=== PATIENT | female | born 1975 | race Caucasian/White ===

== ENCOUNTER 2019-09-03 14:39 | Emergency (ER) | payer MEDICARE, OTHER ==
[~2019-09-03] VITALS: Ht 160 cm; Wt 86.2 kg
[~2019-09-03 14:39] MED LIST: CARAFATE1 G1 PO; ELAVIL25 MG PO; GEODON; TRILIPTAL PO; Z ACIDOPHILUS PO; Z GEODON PO; Z.0.BENTYL10 MG PO; Z.0.LEVOTHYROXINE75 PO; Z.0.NEXIUM40 MG PO; Z.0.PAXIL40 MG PO; Z.0.TRILEPTAL300 MG PO; ZANTAC150 MG PO; [UNRECOGNIZED DRUG - OTHER] PO
[2019-09-03] MEDS ORDERED: DONNATAL/LIDOCAINE/MAALOX 30 ML SUSP PO ONE (15:15)
[2019-09-03] MEDS ORDERED: LIDOCAINE VISC 2% SOLN 15 ML UDC ONE (15:41)
[2019-09-03] MEDS ORDERED: MAGNESIUM/ALUMINUM/SIMETHICONE 30 ML UDC ONE (15:41)
[2019-09-03] MEDS ORDERED: BELLADONNA ALK/PHENOBARBITAL 5 ML UDC ONE (15:41)
[2019-09-03] MEDS ORDERED: PANTOPRAZOLE 40 MG 10ML VIAL IV ONE (16:24)
[2019-09-03] MEDS ORDERED: ONDANSETRON HCL INJ 2MG/ML 2ML 2 MG/ML VIAL IV ONE (16:24)
[2019-09-03] MEDS ORDERED: SODIUM CHLORIDE 0.9% 1000ML 1,000 ML IV SCH (16:30)
[2019-09-03 16:41] LABS: AMPHETAMINES SCREEN,URINE NEGATIVE (NEGATIVE); BENZODIAZEPINES SCREEN,URINE NEGATIVE (NEGATIVE); PHENCYCLIDINE SCREEN,URINE NEGATIVE (NEGATIVE)
[2019-09-03 17:19] LABS: BASOPHILS # (AUTO) 0.1 (0.0-0.1); BASOPHILS % 0.8 % (0.0-1.0); EOSINOPHILS # (AUTO) 0.1 (0.0-0.4); HEMATOCRIT 44.4 % (34.2-44.1); LYMPHOCYTES # (AUTO) 1.9 (1.0-3.2); LYMPHOCYTES % 17.9 % (18.0-39.1); MEAN CORPUSCULAR HEMOGLOBIN 32.4 pg (28-32); MEAN CORPUSCULAR HGB CONC 33.8 g/dL (31-35); MEAN CORPUSCULAR VOLUME 95.9 fL (81-99); MONOCYTES # (AUTO) 0.7 (0.2-0.8); MONOCYTES % 6.6 % (4.4-11.3); NEUTROPHILS # (AUTO) 7.8 (2.1-6.9); NEUTROPHILS % 73.4 % (38.7-80.0); PLATELET COUNT 395 x10e3/uL (140-360); RED BLOOD COUNT 4.63 x10e6/uL (3.6-5.1); RED CELL DISTRIBUTION WIDTH 13.3 % (11.7-14.4)
--- NOTE | 2019-09-03 17:32 | Diagnostic Imaging Report ---
Exam: KUB - 2 views Indication: Abdominal Pain Comparison: None Findings: Distended stomach with ingested material. No free air. No abnormal calcifications. The osseous structures appear unremarkable. The partially visualized lung bases appear clear. Impression: Distended stomach filled with ingested material. No free air. Signed by: Lashonda Barrow MD on 09/03/2019 5:29 PM
[2019-09-03 17:38] LABS: ALANINE AMINOTRANSFERASE 11 IU/L (0-55); ALBUMIN/GLOBULIN RATIO 1.1 (0.8-2.0); ALKALINE PHOSPHATASE 79 IU/L (40-150); AMYLASE 41 U/L (25-125); ANION GAP 16.2 mmol/L (8-16); BLOOD UREA NITROGEN 11 mg/dL (7-26); BUN/CREATININE RATIO 14 (6-25); CALCIUM 9.7 mg/dL (8.4-10.2); CARBON DIOXIDE 25 mmol/L (22-29); CHLORIDE 99 mmol/L (98-107); CREATININE, SERUM 0.76 mg/dL (0.57-1.11); EST GLOMERULAR FILTRATION RATE > 60 ML/MIN (60-); GLUCOSE 86 mg/dL (74-118); LIPASE 38 U/L (8-78); MAGNESIUM 1.7 MG/DL (1.3-2.1); POTASSIUM 4.2 mmol/L (3.5-5.1); SODIUM 136 mmol/L (136-145)
[2019-09-03] MEDS ORDERED: ONDANSETRON HCL INJ 2MG/ML 2ML 2 MG/ML VIAL IV STA (18:14)
--- NOTE | 2019-09-03 18:14 | NUR ---
Pt vomited 1000ml of emesis of food particles and is still in pain. Pt is now getting a CT scan and medications. Pt refused to leave after getting discharge papers. Dr. Lee at bedside.
[2019-09-03] MEDS ORDERED: MORPHINE SULFATE INJ 4 MG/ML INJ 1ML IV PRN (18:15)
--- NOTE | 2019-09-03 19:05 | NUR ---
Report to PETEY Kelly
[2019-09-03] MEDS ORDERED: IOPAMIDOL 370 MG/ML 200 ML INFUS..BTL INJ ONE (19:08)
[2019-09-03] MEDS ORDERED: SODIUM CHLORIDE 0.9% 50ML 50 ML ONE (19:08)
[2019-09-03 20:12] VITALS: BP 98/78
--- NOTE | 2019-09-03 20:16 | Diagnostic Imaging Report ---
EXAM: CT Abdomen and Pelvis WITH contrast INDICATION: Abdominal pain. History of gastric ulcer disease. COMPARISON: None. TECHNIQUE: Abdomen and pelvis were scanned utilizing a multidetector helical scanner from the lung base to the pubic symphysis after administration of IV contrast. Coronal and sagittal reformations were obtained. Routine protocol was performed. Scan was performed when during portal venous phase. IV CONTRAST: 100 cc Isovue 370. ORAL CONTRAST: Water RADIATION DOSE: Total DLP: 349.64 mGy*cm Estimated effective dose: (DLP x 0.015 x size factor) mSv COMPLICATIONS: None FINDINGS: LINES and TUBES: None. LOWER THORAX: Unremarkable HEPATOBILIARY: No focal hepatic lesions. No biliary ductal dilation. GALLBLADDER: No radio-opaque stones or sludge. No wall thickening. SPLEEN: No splenomegaly. PANCREAS: No focal masses or ductal dilatation. ADRENALS: No adrenal nodules KIDNEYS/URETERS: Kidneys enhance symmetrically. No hydronephrosis. Small extrarenal right renal pelvis. Small low-attenuation lesions scattered throughout the kidneys bilaterally the largest in the lateral lower interpolar region of the right kidney measuring 1.1 cm, all demonstrating above than water attenuation, possibly due to technique No stones. GI TRACT: The gastric body and fundus is filled with fluid residue. There is mild thickening of the gastric wall which is nonspecific, however, may represent gastritis in the proper clinical setting. The gastric antrum is now distended which precludes adequate evaluation. There is no bowel dilatation to suggest obstruction. Appendix is unremarkable. Surgical clips are present along the esophagogastric junction and lesser curvature of the stomach, suggesting prior surgical procedure. The colon is somewhat normal in position, with the cecum located in the anterior mid abdomen. The appendix is unremarkable. PELVIC ORGANS/BLADDER: Unremarkable. LYMPH NODES: No lymphadenopathy. VESSELS: Unremarkable. PERITONEUM / RETROPERITONEUM: No free air or fluid. BONES: Multilevel Schmorl nodes. SOFT TISSUES: Unremarkable. IMPRESSION: 1. Findings may reflect gastritis. Possible narrowing of the gastric antrum not completely evaluated with this examination without contrast may reflect peptic ulcer disease. Recommend further evaluation with upper GI series or upper GI endoscopy. 2. Evidence of prior surgical history involving the esophagogastric junction and possibly proximal stomach; correlate clinically with past surgical history. 3. Small low-attenuation renal lesions bilaterally may represent cysts. Suggest further evaluation with nonemergent ultrasound of kidneys. Signed by: Dr. Julia Celaya M.D. on 09/03/2019 8:13 PM
== END 2019-09-03 20:20 | disposition home or self-care (01) ==
LOC: ER 14:39
DX: R10.13 Epigastric pain (principal); M79.7 Fibromyalgia; K31.84 Gastroparesis; E03.9 Hypothyroidism, unspecified; F31.9 Bipolar disorder, unspecified; Z88.5 Allergy status to narcotic agent; K21.9 Gastro-esophageal reflux disease without esophagitis
CPT/HCPCS: 36415; 74018; 74177; 80053; 80307; 81025; 82150; 83690; 83735; 85025; 99284; C9113; J2270; J2405; J7030; Q9967

== ENCOUNTER 2020-03-31 20:36 | Observation (INO) | payer MEDICARE ==
[~2020-03-31] VITALS: Ht 160 cm; Wt 86.2 kg
--- OUTSIDE RECORDS SUMMARY | 2020-03-31 20:41 | XMS REPORT ---
Author Author [facility] t Organization [facility] Address [address] [place] [id number] Phone Unavailable Care Team Providers Care Resolution Rep Name Role Phone ROYAL DALEY MD PCP PATY SINGER Unavailable Payers Payer Name Policy Type Policy Number Effective Date Expiration Date S mikel Medicare A & B [id number] 2007 00:00:00 [facility] Miscellaneous Indemnity [id number] 2009 00:00:00 [facility] Problems Condition Name Condition Details Condition Category Status Onset Date Resolution Date Last Treatment Date Treating Clinician Comments Source Peptic ulcer Peptic ulcer disease Problem Active [facility] Allergies, Adverse Reactions, Alerts Allergy Name Allergy Type Status Severity Reaction(s) Onset Date Inacti ve Date Treating Clinician Comments Source meperidine HCl Allergy to Substance Active Mild Itching 2019-09-03 0 0:00:00 [facility] Medications Ordered Medication Name Filled Medication Name Start Date Stop Da te Current Medication? Ordering Clinician Indication Dosage Frequency Signature (SIG) Comments Components Source Amitriptyline Hcl (Elavil) 25 Mg Tab Amitriptyline Hcl (Elavil) 25 Mg Tab Yes 300 Qhs [facility] Esomeprazole Mag Trihydrate (Nexium) 40 Mg Capsule. Esomeprazole Mag Trihydrate (Nexium) 40 Mg Capsule.dr Fuentes 40 T wice A Day [facility] Levothyroxine Sodium 75 Mcg Tablet Levothyroxine Sodium 75 Mcg Tablet Yes 75 Daily [facility] Oxcarbazepine (Trileptal) 300 Mg Tablet Oxcarbazepine (Trile ptal) 300 Mg Tablet Yes 300 Daily [facility] Paroxetine Hcl (Paxil) 40 Mg Tablet Paroxetine Hcl (Paxil) 40 Mg Tabl et Yes 40 Qhs [facility] Ranitidine Hcl (Zantac) 150 Mg Tablet Ranitidine Hcl (Zantac) 150 M g Tablet Yes 150 As Needed as needed for Indigestion [facility] Ziprasidone Hcl (Geodon) 80 Mg Capsule Ziprasidone Hcl (Geodon) 80 Mg Capsule Yes 100 Qhs [facility] Zolmitriptan (Zomig) 5 Mg Tablet Zolmitriptan (Zomig) 5 Mg Tablet Yes 5 Every 2-3 Hours [facility] Lactobacillus Acidophilus (Acidophilus) 1 Each Tablet, Tab Oral Lactobacillus Acidophilus (Acidophilus) 1 Each Tablet, Tab Oral 2017-03-11 00:00:0 0 No Twice A Day [facility] Dicyclomine Hcl (Bentyl) 10 Mg Capsule, 10 Mg Oral Dic yclomine Hcl (Bentyl) 10 Mg Capsule, 10 Mg Oral 2015-07-28 00:00:00 No 10 T hree Times A Day [facility] Geodon , Geodon , 2015-05-21 00:00:00 No [facility] Sucralfate (Carafate) 1 Gm Tablet, 1 Gm Oral Sucralfat e (Carafate) 1 Gm Tablet, 1 Gm Oral 2015-05-21 00:00:00 No 1 Four Times Yari ly [facility] Triliptal , 600 Mg Oral Triliptal , 600 Mg Oral 2015-05-21 00:00 :00 No 600 Bedtime [facility] Procedures Procedure Date / Time Performed Performing Clinician Sourc e Computed tomography of abdomen and pelvis with contrast 2018 00:00:00 PATY SINGER [facility] Encounters Start Date/Time End Date/Time Encounter Type Admission Type Attendi [facility] Facility Care Department Encounter ID Source 2019-11-13 20:01:00 2019-11-13 20:12:00 Departed Emergency Room [facility] [id number] [facility] 2019-09-03 14:39:00 2019-09-03 20:20:00 Departed Emergency Room 1 SINGERPATY [facility] [id number] [facility] 2018-07-07 23:15:00 2018-07-08 00:25:00 Departed Emergency Room [facility] [id number] [facility] Results Test Description Test Time Test Comments Results Result Comments Source CT ABDOMEN/PELVIS W 2019-09-03 19:55:00 [facility] [address] [address] Patient Name: JESUS SPENCE MR #: [id number] : 1975 Age/Sex: 44/F Req #: [id number] Adm Physician: Ordered by: PATY SINGER DO Report #: [id number] Location: ER Room/Bed: Procedure: [id number] CT/CT ABDOMEN/PELVIS W Exam Date: 09/03/19 Exam Time: 1851 REPORT STATUS: Signed EXAM: CT Abdomen and Pelvis WITH contrast INDICATION: Abdominal pain. History of gastric ulcer disease. COMPARISON: None. TECHNIQUE: Abdomen and pelvis were scanned utilizing a multidetector helical scanner from the lung base to the pubic symphysis after administration of IV contrast. Coronal and sagittal reformations were obtained. Routine protocol was performed. Scan was performed when during portal venous phase. IV CONTRAST: 100 cc Isovue 370. ORAL CONTRAST: Water RADIATION DOSE: Total DLP: 349.64 mGy*cm Estimated effective dose: (DLP x 0.015 x size factor) mSv COMPLICATIONS: None FINDINGS: LINES and TUBES: None. LOWER THORAX: Unremarkable HEPATOBILIARY: No focal hepatic lesions. No biliary ductal dilation. GALLBLADDER: No radio-opaque stones or sludge. No wall thickening. SPLEEN: No splenomegaly. PANCREAS: No focal masses or ductal dilatation. ADRENALS: No adrenal nodules KIDNEYS/URETERS: Kidneys enhance symmetrically. No hydronephrosis. Small extrarenal right renal pelvis. Small low-attenuation lesions scattered throughout the kidneys bilaterally the largest in the lateral lower interpolar region of the right kidney measuring 1.1 cm, all demonstrating above than water attenuation, possibly due to technique No stones. GI TRACT: The gastric body and fundus is filled with fluid residue. There is mild thickening of the gastric wall which is nonspecific, however, may represent gastritis in the proper clinical setting. The gastric antrum is now distended which precludes adequate evaluation. There is no bowel dilatation to suggest obstruction. Appendix is unremarkable. Surgical clips are present along the esophagogastric junction and lesser curvature of the stomach, suggesting prior surgical procedure. The colon is somewhat normal in position, with the cecum located in the anterior mid abdomen. The appendix is unremarkable. PELVIC ORGANS/BLADDER: Unremarkable. LYMPH NODES: No lymphadenopathy. VESSELS: Unremarkable. PERITONEUM / RETROPERITONEUM: No free air or fluid. BONES: Multilevel Schmorl nodes. SOFT TISSUES: Unremarkable. IMPRESSION: 1. Findings may reflect gastritis. Possible narrowing of the gastric antrum not completely evaluated with this examination without contrast may reflect peptic ulcer disease. Recommend further evaluation with upper GI series or upper GI endoscopy. 2. Evidence of prior surgical history involving the esophagogastric junction and possibly proximal stomach; correlate clinically with past surgical history. 3. Small low-attenuation renal lesions bilaterally may represent cysts. Suggest further evaluation with nonemergent ultrasound of kidneys. Signed by: Dr. Julia Velazquez M.D. on 09/03/2019 8:13 PM Dictated By: ELIZABETH VELAZQUEZ MD, MD 12 Transcribed By: TAMARA on 09/03/192012 COPY TO: PATY SINGER DO Sodium Level 2019-09-03 17:38:00 Test Item Sodium Level (test code = 2951-2) 136 136-145 [facility] Opwws7771-23-91 17:38:00* Test Item Value Reference Range Interpretation Comments Potassium Level (test code = 2823-3) 4.2 3.5-5.1 [facility] HospitalChloride Wfgzh1244-82-88 17:38:00* Test Item Value Reference Range Interpretation Comments Chloride Level (test code = 2075-0) 99 98-107 [facility] HospitalCarbon Dioxide Bljbn8079-01-58 17:38:00* Test Item Value Reference Range Interpretation Comments Carbon Dioxide Level (test code = 2028-9) 25 22-29 [facility] HospitalAnion Ztm6503-98-10 17:38:00* Test Item Value Reference Range Interpretation Comments Anion Gap (test code = 53863-1) 16.2 8-16 H [facility] HospitalBlood Urea Ywlqfeiq5839-13-08 17:38:00* Test Item Value Reference Range Interpretation Comments Blood Urea Nitrogen (test code = 3094-0) 11 7-26 [facility] HospitalCreatinine2019-11-01 17:38:00* Test Item Value Reference Range Interpretation Comments Creatinine (test code = 2160-0) 0.76 0.57-1.11 [facility] HospitalBUN/Creatinine Tswcm9705-14-96 17:38:00* Test Item Value Reference Range Interpretation Comments BUN/Creatinine Ratio (test code = 3097-3) 14 6- [facility] HospitalEstimat Glomerular Filtration Rate 2019-09-03 17:38:00* Test Item Value Reference Range Interpretation Comments Estimat Glomerular Filtration Rate (test code = 190976493) > 60 >60 Ranges were taken from the National Kidney Disease Education Program and the [facility] [employer] literature.Reference ranges:60 or greater: Xsftmu55-06 ( for 3 consecutive months): Chronic kidney disease 15 or less: Kidney failureHouston Methodist HospitalGlucose Ggsik8846-94-68 17:38:00* Test Item Value Reference Range Interpretation Comments Glucose Level (test code = GNW8500) 86 74-118 [facility] HospitalCalcium Dwwjc5719-37-68 17:38:00* Test Item Value Reference Range Interpretation Comments Calcium Level (test code = 29785-8) 9.7 8.4-10.2 [facility] HospitalMagnesium Figej7865-37-84 17:38:00* Test Item Value Reference Range Interpretation Comments Magnesium Level (test code = 16278-1) 1.7 1.3-2.1 [facility] HospitalTotal Buzcpxfvm7419-60-66 17:38:00* Test Item Value Reference Range Interpretation Comments Total Bilirubin (test code = 1975-2) 0.2 0.2-1.2 [facility] HospitalAspartate Amino Transf (AST/SGOT) 2019-09-03 17:38:00* Test Item Value Reference Range Interpretation Comments Aspartate Amino Transf (AST/SGOT) (test code = Aspartate Amino Transf (AST/SGOT)) 16 5-34 [facility] HospitalAlanine Aminotransferase (ALT/SGPT) 2019-09-03 17:38:00* Test Item Value Reference Range Interpretation Comments Alanine Aminotransferase (ALT/SGPT) (test code = 1742-6) 11 0-55 [facility] HospitalTotal Wieyofg6503-83-79 17:38:00* Test Item Value Reference Range Interpretation Comments Total Protein (test code = 2885-2) 7.5 6.5-8.1 [facility] HospitalAlbumin2019-11-01 17:38:00* Test Item Value Reference Range Interpretation Comments Albumin (test code = 1751-7) 4.0 3.5-5.0 [facility] HospitalGlobulin2019-11-01 17:38:00* Test Item Value Reference Range Interpretation Comments Globulin (test code = 74300-0) 3.5 2.3-3.5 [facility] HospitalAlbumin/Globulin Ipjdi9542-02-65 17:38:00 * Test Item Value Reference Range Interpretation Comments Albumin/Globulin Ratio (test code = 1759-0) 1.1 0.8-2.0 [facility] HospitalAlkaline Wydjgupnenm8196-65-37 17:38:00* Test Item Value Reference Range Interpretation Comments Alkaline Phosphatase (test code = 6768-6) 79 40-150 [facility] HospitalAmylase Ikjzi2008-76-01 17:38:00* Test Item Value Reference Range Interpretation Comments Amylase Level (test code = 1798-8) 41 25-125 [facility] HospitalLipase2019-11-01 17:38:00* Test Item Value Reference Range Interpretation Comments Lipase (test code = 3040-3) 38 8-78 [facility] Ooezz1599-89-09 17:38:00* Test Item Value Reference Range Interpretation Comments Sodium Level (test code = 2951-2) 136 136-145 [facility] HospitalPotassium Hmoeg9345-52-59 17:38:00* Test Item Value Reference Range Interpretation Comments Potassium Level (test code = 2823-3) 4.2 3.5-5.1 [facility] HospitalChloride Jwsot8632-15-91 17:38:00* Test Item Value Reference Range Interpretation Comments Chloride Level (test code = 2075-0) 99 98-107 [facility] HospitalCarbon Dioxide Jxzeo0104-97-99 17:38:00* Test Item Value Reference Range Interpretation Comments Carbon Dioxide Level (test code = 2028-9) 25 22-29 [facility] HospitalAnion Qdv6742-50-14 17:38:00* Test Item Value Reference Range Interpretation Comments Anion Gap (test code = 18781-0) 16.2 8-16 H [facility] HospitalBlood Urea Ngmiasdq3253-67-66 17:38:00* Test Item Value Reference Range Interpretation Comments Blood Urea Nitrogen (test code = 3094-0) 11 7-26 [facility] HospitalCreatinine2019-11-01 17:38:00* Test Item Value Reference Range Interpretation Comments Creatinine (test code = 2160-0) 0.76 0.57-1.11 [facility] HospitalBUN/Creatinine Wpeji4122-99-94 17:38:00* Test Item Value Reference Range Interpretation Comments BUN/Creatinine Ratio (test code = 3097-3) 14 6-25 [facility] HospitalEstimat Glomerular Filtration Rate 2019-09-03 17:38:00* Test Item Value Reference Range Interpretation Comments Estimat Glomerular Filtration Rate (test code = 275611605) > 60 >60 Ranges were taken from the National Kidney Disease Education Program and the [facility] [employer] literature.Reference ranges:60 or greater: Adbula86-01 ( for 3 consecutive months): Chronic kidney disease 15 or less: Kidney failureHouston Methodist HospitalGlucose Rktwi9831-72-98 17:38:00* Test Item Value Reference Range Interpretation Comments Glucose Level (test code = KGC3068) 86 74-118 [facility] HospitalCalcium Mtnvw8352-77-45 17:38:00* Test Item Value Reference Range Interpretation Comments Calcium Level (test code = 22982-3) 9.7 8.4-10.2 [facility] HospitalMagnesium Adltp5206-44-29 17:38:00* Test Item Value Reference Range Interpretation Comments Magnesium Level (test code = 38674-5) 1.7 1.3-2.1 [facility] HospitalTotal Urtcdshpu9008-15-79 17:38:00* Test Item Value Reference Range Interpretation Comments Total Bilirubin (test code = 1975-2) 0.2 0.2-1.2 [facility] HospitalAspartate Amino Transf (AST/SGOT) 2019-09-03 17:38:00* Test Item Value Reference Range Interpretation Comments Aspartate Amino Transf (AST/SGOT) (test code = Aspartate Amino Transf (AST/SGOT)) 16 5-34 [facility] HospitalAlanine Aminotransferase (ALT/SGPT) 2019-09-03 17:38:00* Test Item Value Reference Range Interpretation Comments Alanine Aminotransferase (ALT/SGPT) (test code = 1742-6) 11 0-55 [facility] HospitalTotal Fuiworf3109-38-68 17:38:00* Test Item Value Reference Range Interpretation Comments Total Protein (test code = 2885-2) 7.5 6.5-8.1 [facility] HospitalAlbumin2019-11-01 17:38:00* Test Item Value Reference Range Interpretation Comments Albumin (test code = 1751-7) 4.0 3.5-5.0 [facility] HospitalGlobulin2019-11-01 17:38:00* Test Item Value Reference Range Interpretation Comments Globulin (test code = 25973-5) 3.5 2.3-3.5 [facility] HospitalAlbumin/Globulin Pbozy3693-32-93 17:38:00 * Test Item Value Reference Range Interpretation Comments Albumin/Globulin Ratio (test code = 1759-0) 1.1 0.8-2.0 [facility] HospitalAlkaline Odllzhsfpls6323-38-33 17:38:00* Test Item Value Reference Range Interpretation Comments Alkaline Phosphatase (test code = 6768-6) 79 40-150 [facility] HospitalAmylase Dsrds1030-06-16 17:38:00* Test Item Value Reference Range Interpretation Comments Amylase Level (test code = 1798-8) 41 25-125 [facility] HospitalLipase2019-11-01 17:38:00* Test Item Value Reference Range Interpretation Comments Lipase (test code = 3040-3) 38 8-78 [facility] HospitalABDOMEN-1VIEW (KUB)2019-09-03 17:27:00 [facility] [address] [address] Patient Name: JESUS SPENCE MR #: [id number] : 1975 Age/Sex: 44/F Req #: [id number] Adm Physician: Ordered by: JANNY WALLACE LINING MARKER Report #: [id number] Location: ER Room/Bed: Procedure: [id number] DX/ABDOMEN-1VIEW (KUB) Exam Date: 09/03/19 Exam Sukhjinder e: 1620 REPORT STATUS: Signed Ex am: KUB - 2 views Indication: Abdominal Pain Comparison: None Fin dings: Distended stomach with ingested material. No free air. No abnormal c alcifications. The osseous structures appear unremarkable. The partially visua lized lung bases appear clear. Impression: Distended stomach filled with ingested material. No free air. Signed by: Scott Barrow MD on 09/03/2019 5:29 PM Dictated By: SCOTT BARROW MD 28 Transcribed By: TAMARA on 09/03/191728 COPY TO: JANNY MEZA NP White Blood Msyjq6520-85-93 17:26:00* Test Item Value Reference Range Interpretation Comments White Blood Count (test code = 6690-2) 10.67 4.8-10.8 [facility] HospitalRed Blood Zckrk2777-77-26 17:26:00* Test Item Value Reference Range Interpretation Comments Red Blood Count (test code = 789-8) 4.63 3.6-5.1 [facility] HospitalHemoglobin2019-11-01 17:26:00* Test Item Value Reference Range Interpretation Comments Hemoglobin (test code = 60305-3) 15.0 12.0-16.0 [facility] HospitalHematocrit2019-11-01 17:26:00* Test Item Value Reference Range Interpretation Comments Hematocrit (test code = 4544-3) 44.4 34.2-44.1 H [facility] HospitalMean Corpuscular Qmpxpx8192-03-69 17:26:00* Test Item Value Reference Range Interpretation Comments Mean Corpuscular Volume (test code = 787-2) 95.9 81-99 [facility] HospitalMe Corpuscular Rjipmilryy7521-80-91 17:26:00* Test Item Value Reference Range Interpretation Comments Mean Corpuscular Hemoglobin (test code = 785-6) 32.4 28-32 H [facility] Corpuscular Hemoglobin Concent 2019-09-03 17:26:00* Test Item Value Reference Range Interpretation Comments Mean Corpuscular Hemoglobin Concent (test code = 786-4) 33.8 31-35 [facility] HospitalRed Cell Distribution Tfemj3157-48-52 17:26:00* Test Item Value Reference Range Interpretation Comments Red Cell Distribution Width (test code = 09098-0) 13.3 11.7 -14.4 [facility] HospitalPlatelet Vybie4010-55-15 17:26:00* Test Item Value Reference Range Interpretation Comments Platelet Count (test code = 777-3) 395 140-360 H [facility] HospitalNeutrophils (%) (Auto)2019-09-03 17:26:00 * Test Item Value Reference Range Interpretation Comments Neutrophils (%) (Auto) (test code = 64084-5) 73.4 38.7-80.0 [facility] HospitalLymphocytes (%) (Auto)2019-09-03 17:26:00 * Test Item Value Reference Range Interpretation Comments Lymphocytes (%) (Auto) (test code = 736-9) 17.9 18.0-39.1 L [facility] HospitalMonocytes (%) (Auto)2019-09-03 17:26:00* Test Item Value Reference Range Interpretation Comments Monocytes (%) (Auto) (test code = 5905-5) 6.6 4.4-11.3 [facility] HospitalEosinophils (%) (Auto)2019-09-03 17:26:00 * Test Item Value Reference Range Interpretation Comments Eosinophils (%) (Auto) (test code = 713-8) 1.0 0.0-6.0 [facility] HospitalBasophils (%) (Auto)2019-09-03 17:26:00* Test Item Value Reference Range Interpretation Comments Basophils (%) (Auto) (test code = 706-2) 0.8 0.0-1.0 [facility] HospitalIM GRANULOCYTES %2019-09-03 17:26:00* Test Item Value Reference Range Interpretation Comments IM GRANULOCYTES % (test code = IM GRANULOCYTES %) 0.3 0.0- 1.0 [facility] HospitalNeutrophils # (Auto)2019-09-03 17:26:00* Test Item Value Reference Range Interpretation Comments Neutrophils # (Auto) (test code = 751-8) 7.8 2.1-6.9 H [facility] HospitalLymphocytes # (Auto)2019-09-03 17:26:00* Test Item Value Reference Range Interpretation Comments Lymphocytes # (Auto) (test code = 04486-4) 1.9 1.0-3.2 [facility] HospitalMonocytes # (Auto)2019-09-03 17:26:00* Test Item Value Reference Range Interpretation Comments Monocytes # (Auto) (test code = 742-7) 0.7 0.2-0.8 [facility] HospitalEosinophils # (Auto)2019-09-03 17:26:00* Test Item Value Reference Range Interpretation Comments Eosinophils # (Auto) (test code = 711-2) 0.1 0.0-0.4 [facility] HospitalBasophils # (Auto)2019-09-03 17:26:00* Test Item Value Reference Range Interpretation Comments Basophils # (Auto) (test code = 704-7) 0.1 0.0-0.1 [facility] HospitalAbsolute Immature Granulocyte (auto 2019-09-03 17:26:00* Test Item Value Reference Range Interpretation Comments Absolute Immature Granulocyte (auto (emilee t code = Absolute Immature Granulocyte (auto) 0.03 0-0.1 [facility] HospitalWhite Blood Vvcek3007-80-17 17:26:00* Test Item Value Reference Range Interpretation Comments White Blood Count (test code = 6690-2) 10.67 4.8-10.8 [facility] HospitalRed Blood Uylzq9060-92-63 17:26:00* Test Item Value Reference Range Interpretation Comments Red Blood Count (test code = 789-8) 4.63 3.6-5.1 [facility] HospitalHemoglobin2019-11-01 17:26:00* Test Item Value Reference Range Interpretation Comments Hemoglobin (test code = 76185-5) 15.0 12.0-16.0 [facility] HospitalHematocrit2019-11-01 17:26:00* Test Item Value Reference Range Interpretation Comments Hematocrit (test code = 4544-3) 44.4 34.2-44.1 H [facility] HospitalMean Corpuscular Avsbck3921-21-86 17:26:00* Test Item Value Reference Range Interpretation Comments Mean Corpuscular Volume (test code = 787-2) 95.9 81-99 [facility] HospitalMean Corpuscular Cdgzglwxnm9943-84-68 17:26:00* Test Item Value Reference Range Interpretation Comments Mean Corpuscular Hemoglobin (test code = 785-6) 32.4 28-32 H [facility] HospitalMean Corpuscular Hemoglobin Concent 2019-09-03 17:26:00* Test Item Value Reference Range Interpretation Comments Mean Corpuscular Hemoglobin Concent (test code = 786-4) 33.8 31-35 [facility] HospitalRed Cell Distribution Rqcfb0297-15-61 17:26:00* Test Item Value Reference Range Interpretation Comments Red Cell Distribution Width (test code = 31481-4) 13.3 11.7 -14.4 [facility] HospitalPlatelet Rvjef5825-64-56 17:26:00* Test Item Value Reference Range Interpretation Comments Platelet Count (test code = 777-3) 395 140-360 H [facility] HospitalNeutrophils (%) (Auto)2019-09-03 17:26:00 * Test Item Value Reference Range Interpretation Comments Neutrophils (%) (Auto) (test code = 04622-3) 73.4 38.7-80.0 [facility] HospitalLymphocytes (%) (Auto)2019-09-03 17:26:00 * Test Item Value Reference Range Interpretation Comments Lymphocytes (%) (Auto) (test code = 736-9) 17.9 18.0-39.1 L [facility] HospitalMonocytes (%) (Auto)2019-09-03 17:26:00* Test Item Value Reference Range Interpretation Comments Monocytes (%) (Auto) (test code = 5905-5) 6.6 4.4-11.3 [facility] HospitalEosinophils (%) (Auto)2019-09-03 17:26:00 * Test Item Value Reference Range Interpretation Comments Eosinophils (%) (Auto) (test code = 713-8) 1.0 0.0-6.0 [facility] HospitalBasophils (%) (Auto)2019-09-03 17:26:00* Test Item Value Reference Range Interpretation Comments Basophils (%) (Auto) (test code = 706-2) 0.8 0.0-1.0 [facility] HospitalIM GRANULOCYTES %2019-09-03 17:26:00* Test Item Value Reference Range Interpretation Comments IM GRANULOCYTES % (test code = IM GRANULOCYTES %) 0.3 0.0- 1.0 [facility] HospitalNeutrophils # (Auto)2019-09-03 17:26:00* Test Item Value Reference Range Interpretation Comments Neutrophils # (Auto) (test code = 751-8) 7.8 2.1-6.9 H [facility] HospitalLymphocytes # (Auto)2019-09-03 17:26:00* Test Item Value Reference Range Interpretation Comments Lymphocytes # (Auto) (test code = 56208-6) 1.9 1.0-3.2 [facility] HospitalMonocytes # (Auto)2019-09-03 17:26:00* Test Item Value Reference Range Interpretation Comments Monocytes # (Auto) (test code = 742-7) 0.7 0.2-0.8 [facility] HospitalEosinophils # (Auto)2019-09-03 17:26:00* Test Item Value Reference Range Interpretation Comments Eosinophils # (Auto) (test code = 711-2) 0.1 0.0-0.4 [facility] HospitalBasophils # (Auto)2019-09-03 17:26:00* Test Item Value Reference Range Interpretation Comments Basophils # (Auto) (test code = 704-7) 0.1 0.0-0.1 [facility] HospitalAbsolute Immature Granulocyte (auto 2019-09-03 17:26:00* Test Item Value Reference Range Interpretation Comments Absolute Immature Granulocyte (auto (emilee t code = Absolute Immature Granulocyte (auto) 0.03 0-0.1 [facility] HospitalUrine Opiates Ofnacx3427-79-65 16:41:00* Test Item Value Reference Range Interpretation Comments Urine Opiates Screen (test code = 38560-5) NEGATIVE NEGATIVE ALL TESTS PERFORMED MANUALLY ON BIORAD TOX/SEE TESTHouston Methodist HospitalUrine Barbiturates Tawddc8241-44-58 16:41:00* Test Item Value Reference Range Interpretation Comments Urine Barbiturates Screen (test code = 563826741) NEGATIVE NEGA TIVE [facility] HospitalUrine Phencyclidine Rvcgka1159-30-86 16:41:00* Test Item Value Reference Range Interpretation Comments Urine Phencyclidine Screen (test code = 46769-2) NEGATIVE NEGAT [facility] [id number] 16:41:00* Test Item Value Reference Range Interpretation Comments Urine Amphetamines Screen (test code = 26319-2) NEGATIVE NEGATI VE [facility] [id number] 16:41:00* Test Item Value Reference Range Interpretation Comments Urine Methamphetamines Screen (test code = Urine Metha mphetamines Screen) NEGATIVE NEGATIVE [facility] Ben[facility]odiazep[facility] [id number] 16:41:00* Test Item Value Reference Range Interpretation Comments Urine Benzodiazepines Screen (test code = 24556-7) NEGATIVE NEG ATIVE [facility] Cocaine [id number] 16:41:00* Test Item Value Reference Range Interpretation Comments Urine Cocaine Screen (test code = 3398-5) NEGATIVE NEGATIVE [facility] Cannabinoids [id number] 16:41:00* Test Item Value Reference Range Interpretation Comments Urine Cannabinoids Screen (test code = 95945-9) NEGATIVE NEGATI VE THESE RESULTS ARE FOR MEDICAL TREATMENT ONLYTHIS REPORT CONTAINS UNCONFIR MED SCREENING RESULTS*POSITIVE RESULTS WILL BE CONFIRMED BY REFERENCE LAB UPON R EQUEST CUT-OFFDRUG CLASS CONCENTRATION ng/mLAmphetamines 1000Methamphetamines 1000Cocaine 300Opiate 300Phencyc lidine 25Cannabinoid 50Barbiturates 300Benzodiazepine 300Methadone 300[facility] [id number] 16:41:00* Test Item Value Reference Range Interpretation Comments Urine Methadone Screen (test code = 40966-9) NEGATIVE NEGATIVE THESE RESULTS ARE FOR MEDICAL TREATMENT ONLYTHIS REPORT CONTAINS UNCONFIR MED SCREENING RESULTS*POSITIVE RESULTS WILL BE CONFIRMED BY REFERENCE LAB UPON R EQUEST CUT-OFFDRUG CLASS CONCENTRATION ng/mLAmphetamines 1000Methamphetamines 1000Cocaine Metabolite 300Opiate 300Phencyc lidine 25Cannabinoid 50Barbiturates 300Benzodiazepine 300Methadone 300[facility] [id number] 16:41:00* Test Item Value Reference Range Interpretation Comments Urine Opiates Screen (test code = 11013-4) NEGATIVE NEGATIVE ALL TESTS PERFORMED MANUALLY ON gate5 TOX/SEE TESTHouston [facility] HospitalUrine Barbiturates [id number] 16:41:00* Test Item Value Reference Range Interpretation Comments Urine Barbiturates Screen (test code = 864724148) NEGATIVE NEGA TIVE [facility] Phencyclidine [id number] 16:41:00* Test Item Value Reference Range Interpretation Comments Urine Phencyclidine Screen (test code = 90701-8) NEGATIVE NEGAT [facility]ADIQ [facility]het[facility] [id number] 16:41:00* Test Item Value Reference Range Interpretation Comments Urine Amphetamines Screen (test code = 68051-2) NEGATIVE NEGATI VE [facility] Methamphetamines [id number] 16:41:00* Test Item Value Reference Range Interpretation Comments Urine Methamphetamines Screen (test code = Urine Metha mphetamines Screen) NEGATIVE NEGATIVE [facility] Benzodiazep[facility] [id number] 16:41:00* Test Item Value Reference Range Interpretation Comments Urine Benzodiazepines Screen (test code = 60429-1) NEGATIVE NEG ATIVE [facility] Cocaine [id number] 16:41:00* Test Item Value Reference Range Interpretation Comments Urine Cocaine Screen (test code = 3398-5) NEGATIVE NEGATIVE [facility] Cannabin[facility] [id number] 16:41:00* Test Item Value Reference Range Interpretation Comments Urine Cannabinoids Screen (test code = 65171-3) NEGATIVE NEGATI VE THESE RESULTS ARE FOR MEDICAL TREATMENT ONLYTHIS REPORT CONTAINS UNCONFIR MED SCREENING RESULTS*POSITIVE RESULTS WILL BE CONFIRMED BY REFERENCE LAB UPON R EQUEST CUT-OFFDRUG CLASS CONCENTRATION ng/mLAmphetamines 1000Methamphetamines 1000Cocaine 300Opiate 300Phencyc lidine 25Cannabinoid 50Barbiturates 300Benzodiazepine 300M[facility]adone 300[facility]one [id number] 16:41:00* Test Item Value Reference Range Interpretation Comments Urine Methadone Screen (test code = 70126-1) NEGATIVE NEGATIVE THESE RESULTS ARE FOR MEDICAL TREATMENT ONLYTHIS REPORT CONTAINS UNCONFIR MED SCREENING RESULTS*POSITIVE RESULTS WILL BE CONFIRMED BY REFERENCE LAB UPON R EQUEST CUT-OFFDRUG CLASS CONCENTRATION ng/mLAmphetamines 1000Methamphetamines 1000Cocaine Metabolite 300Opiate 300Phencyc lidine 25Cannabinoid 50Barbiturates 300Benzodiazepine 300Methadone 300[facility] [id number] 16:21:00* Test Item Value Reference Range Interpretation Comments Urine Test (test code = 2106-3) NEGATIVE NEGATIVE [facility] [id number] 16:21:00* Test Item Value Reference Range Interpretation Comments Urine Test (test code = 2106-3) NEGATIVE NEGATIVE [facility]
[2020-03-31] MEDS ORDERED: ONDANSETRON HCL INJ 2MG/ML 2ML 2 MG/ML VIAL IV STA (21:04)
[2020-03-31] MEDS ORDERED: PANTOPRAZOLE 40 MG 10ML VIAL IV STA (21:04)
[2020-03-31 22:42] LABS: BASOPHILS # (AUTO) 0.1 (0.0-0.1); BASOPHILS % 0.9 % (0.0-1.0); EOSINOPHILS # (AUTO) 0.1 (0.0-0.4); EOSINOPHILS % 0.8 % (0.0-6.0); HEMATOCRIT 40.7 % (34.2-44.1); HEMOGLOBIN 13.2 g/dL (12.0-16.0); LYMPHOCYTES # (AUTO) 2.4 (1.0-3.2); LYMPHOCYTES % 23.2 % (18.0-39.1); MEAN CORPUSCULAR HEMOGLOBIN 30.6 pg (28-32); MEAN CORPUSCULAR HGB CONC 32.4 g/dL (31-35); MEAN CORPUSCULAR VOLUME 94.2 fL (81-99); MONOCYTES % 9.4 % (4.4-11.3); NEUTROPHILS # (AUTO) 6.8 (2.1-6.9); NEUTROPHILS % 65.2 % (38.7-80.0); PLATELET COUNT 500 x10e3/uL (140-360); RED BLOOD COUNT 4.32 x10e6/uL (3.6-5.1); RED CELL DISTRIBUTION WIDTH 15.2 % (11.7-14.4)
[2020-03-31 22:56] LABS: ALANINE AMINOTRANSFERASE 12 IU/L (0-55); ALBUMIN 3.7 g/dL (3.5-5.0); ALBUMIN/GLOBULIN RATIO 0.9 (0.8-2.0); ALKALINE PHOSPHATASE 65 IU/L (40-150); ANION GAP 17.4 mmol/L (8-16); CALCIUM 9.2 mg/dL (8.4-10.2); CARBON DIOXIDE 20 mmol/L (22-29); CHLORIDE 108 mmol/L (98-107); CREATINE KINASE 40 IU/L (29-168); CREATININE, SERUM 0.83 mg/dL (0.57-1.11); EST GLOMERULAR FILTRATION RATE > 60 ML/MIN (60-); GLUCOSE 93 mg/dL (74-118); POTASSIUM 4.4 mmol/L (3.5-5.1); SODIUM 141 mmol/L (136-145)
[2020-03-31 23:15] LABS: BLOOD UREA NITROGEN 12 mg/dL (7-26); BUN/CREATININE RATIO 15 (6-25)
[2020-03-31] MEDS ORDERED: SODIUM CHLORIDE 0.9% 50ML 50 ML ONE (23:49)
[2020-03-31] MEDS ORDERED: IOPAMIDOL 370 MG/ML 200 ML INFUS..BTL INJ ONE (23:50)
--- NOTE | 2020-04-01 00:39 | Diagnostic Imaging Report ---
EXAM: CT Abdomen and Pelvis WITH contrast INDICATION: Abdominal pain COMPARISON: Abdominal CT 09/03/2019. TECHNIQUE: Abdomen and pelvis were scanned utilizing a multidetector helical scanner from the lung base to the pubic symphysis after administration of IV contrast. Coronal and sagittal reformations were obtained. Routine protocol was performed. Scan was performed when during portal venous phase. IV CONTRAST: 100 mL of Isovue 370 ORAL CONTRAST: None COMPLICATIONS: None RADIATION DOSE: Total DLP: 419 mGy*cm Estimated effective dose: (DLP x 0.015 x size factor) mSv CTDIvol has been reviewed. It is below the limits set by the Radiation Protocol Committee (RPC). Dose modulation, iterative reconstruction, and/or weight based adjustment of the mA/kV was utilized to reduce the radiation dose to as low as reasonably achievable. FINDINGS: LINES and TUBES: None. LOWER THORAX: Unremarkable HEPATOBILIARY: No focal hepatic lesions. No biliary ductal dilation. GALLBLADDER: No radio-opaque stones or sludge. No wall thickening. SPLEEN: No splenomegaly. PANCREAS: No focal masses or ductal dilatation. ADRENALS: No adrenal nodules KIDNEYS/URETERS: Kidneys enhance symmetrically. No hydronephrosis. No cystic or solid mass lesions. Stable small hypodensities in the kidneys are to small to characterize but likely benign, favor either cysts or calyceal diverticula. Punctate nonobstructive right renal calculi. GI TRACT: No abnormal distention, or evidence of bowel obstruction. Subtle gastric wall thickening and submucosal edema. Surgical clips at the gastroesophageal junction, and possible bowel sutures along the lesser curvature of the stomach, probably due to prior gastric surgery. Appendix is normal. PELVIC ORGANS/BLADDER: 1.8 cm right ovarian corpus luteum. Uterus and bladder unremarkable.. LYMPH NODES: No lymphadenopathy. VESSELS: Unremarkable. PERITONEUM / RETROPERITONEUM: No free air or fluid. BONES: Unremarkable. SOFT TISSUES: Stable appearance of small supraumbilical ventral abdominal hernias.. IMPRESSION: 1. Distended gallbladder. Recommend right upper quadrant ultrasound. 2. Subtle findings which can be seen with gastritis. Query prior gastric surgery, as there is CT evidence to suggest prior gastric surgery. 3. Punctate nonobstructive right renal calculi. Signed by: Sergio Appiah DO on 04/01/2020 12:36 AM
[2020-04-01 00:48] LABS: CLARITY,URINE CLOUDY (CLEAR); COLOR,URINE YELLOW (YELLOW); KETONES,URINE NEGATIVE (NEGATIVE); LEUKOCYTE ESTERASE ,URINE NEGATIVE (NEGATIVE); NITRITE,URINE NEGATIVE (NEGATIVE); PHENCYCLIDINE SCREEN,URINE NEGATIVE (NEGATIVE); PROTEIN,URINE DIPSTICK NEGATIVE (NEGATIVE)
[2020-04-01 00:49] LABS: AMPHETAMINES SCREEN,URINE NEGATIVE (NEGATIVE); BENZODIAZEPINES SCREEN,URINE NEGATIVE (NEGATIVE); BILIRUBIN,URINE NEGATIVE (NEGATIVE); URINE UROBILINOGEN 0.2 mg/dL (0.2 - 1)
[2020-04-01 00:50] LABS: BACTERIA,URINE MANY /HPF; EPITHELIAL CELLS,URINE MANY /LPF
--- NOTE | 2020-04-01 01:14 | Diagnostic Imaging Report ---
EXAMINATION: CHEST SINGLE (PORTABLE) INDICATION: Abdominal pain COMPARISON: Day prior abdominal CT FINDINGS: TUBES and LINES: None. LUNGS: Normal lung volumes. Lungs are clear. No consolidations. PLEURA: No pleural effusion or pneumothorax. HEART AND MEDIASTINUM: The cardiomediastinal silhouette is unremarkable. BONES AND SOFT TISSUES: No acute osseous lesion. Soft tissues are unremarkable. UPPER ABDOMEN: No free air under the diaphragm. IMPRESSION: No acute thoracic radiographic abnormality. Signed by: Sergio Appiah DO on 04/01/2020 1:11 AM
[2020-04-01] MEDS ORDERED: MORPHINE SULFATE 2 MG/ML SYR 1ML IV PRN (01:45)
--- NOTE | 2020-04-01 01:52 | Emergency Department Note ---
History of Present Illnes History of Present Illness Chief Complaint: Abdominal Complaints History of Present Illness This is a 44 year old female arrived PT epigastric abdominal pain, patient states it feels like a cat is in her stomach scratching at her abdomen. Patient states she has multiple gastric surgeries and is afraid of losing more of her stomach. Patient states the pain began suddenly and feels like a flareup of her gastritis. Patient states she called her primary care physician and was instructed to come to the ED. Chief Complaint Comment 44 Y/O FEMALE PT PRESENTS TO ED WITH ABDOMINAL PAIN, CRAMPING WITH INTERMITTENT N/V X3 DAYS; PTS V/S/S; 18 GAGUE IV CATH PLACED TO PTS LEFT AC, BLOOD OBTAINED FOR LAB ANALYSIS; UA OBTAINED; ER MD TO TRIAGE FOR INITIAL EVAL . Historian: Patient Arrival Mode: Car Severity: mild Duration (how long): day(s) Timing of current episode: intermittent Progression: waxing and waning Past Medical/Family History Physician Review I have reviewed the patient's past medical and family history. Any updates have been documented here. Past Medical History Recent Fever: No Clinical Suspicion of Infectio: No New/Unexplained Change in Ment: No Past Medical History: Hypothyroidism, Kidney Stones, GERD Other Medical History: BIPOLAR FIBROMYALGIA STOMACH ULCERS Other Surgery: LITHROTRIPSY EGD Family History Family history of heart diseas: No Other Last Tetanus: DENIES Review of Systems Review of Systems Constitutional: no symptoms EENTM: no symptoms Cardiovascular: no symptoms Respiratory: no symptoms Gastrointestinal: as per HPI, abdominal pain Genitourinary: no symptoms Musculoskeletal: no symptoms Neurological: no symptoms Psychological: no symptoms Endocrine: no symptoms Hematological/Lymphatic: no symptoms Review of other systems All other systems reviewed and negative. Physical Exam Related Data Allergies: Coded Allergies: meperidine HCl (Verified Allergy, Mild, Itching, 09/03/19) Triage Vital Signs Vital Signs Date Time Temp Pulse Resp B/P (MAP) Pulse Ox O2 Delivery O2 Flow Rate FiO2 03/31/20 22:07 97.8 78 17 129/84 99 Vital signs reviewed: Yes Physical Exam CONSTITUTIONAL Constitutional: well-developed, well-nourished HENT HENT: normocephalic, atraumatic, oropharynx clear/moist, nose normal HENT L/R: left ext ear normal, right ext ear normal EYES Eyes: PERRL, conjunctivae normal NECK Neck: ROM normal PULMONARY Pulmonary: effort normal, breath sounds normal CARDIOVASCULAR Cardiovascular: regular rhythm, heart sounds normal, capillary refill normal, normal rate GASTROINTESTINAL Abdominal: soft, bowel sounds normal, distension, tender GENITOURINARY Genitourinary: exam deferred SKIN Skin: warm, dry MUSCULOSKELETAL Musculoskeletal: ROM normal NEUROLOGICAL Neurological: alert, oriented x 3, no gross motor or sensory deficits PSYCHOLOGICAL Psychological: mood/affect normal, judgement normal Results Laboratory Result Diagram: 03/31/202 03/31/202010 Laboratory Laboratory Tests Test 03/31/20 22:22 03/31/20 22:20 03/31/20 20:11 White Blood Count 10.45 x10e3/uL (4.8-10.8) Red Blood Count 4.32 x10e6/uL (3.6-5.1) Hemoglobin 13.2 g/dL (12.0-16.0) Hematocrit 40.7 % (34.2-44.1) Mean Corpuscular Volume 94.2 fL (81-99) Mean Corpuscular Hemoglobin 30.6 pg (28-32) Mean Corpuscular Hemoglobin Concent 32.4 g/dL (31-35) Red Cell Distribution Width 15.2 % (11.7-14.4) Platelet Count 500 x10e3/uL (140-360) Neutrophils (%) (Auto) 65.2 % (38.7-80.0) Lymphocytes (%) (Auto) 23.2 % (18.0-39.1) Monocytes (%) (Auto) 9.4 % (4.4-11.3) Eosinophils (%) (Auto) 0.8 % (0.0-6.0) Basophils (%) (Auto) 0.9 % (0.0-1.0) Neutrophils # (Auto) 6.8 (2.1-6.9) Lymphocytes # (Auto) 2.4 (1.0-3.2) Monocytes # (Auto) 1.0 (0.2-0.8) Eosinophils # (Auto) 0.1 (0.0-0.4) Basophils # (Auto) 0.1 (0.0-0.1) Absolute Immature Granulocyte (auto 0.05 x10e3/uL (0-0.1) Urine Color Yellow (YELLOW) Urine Clarity Cloudy (CLEAR) Urine pH 6 (5 - 7) Urine Specific [place] 1.030 (1.010-1.025) Urine Protein Negative (NEGATIVE) Urine Glucose (UA) Negative (NEGATIVE) Urine Ketones Negative (NEGATIVE) Urine Blood Moderate (NEGATIVE) Urine Nitrite Negative (NEGATIVE) Urine Bilirubin Negative (NEGATIVE) Urine Urobilinogen 0.2 mg/dL (0.2 - 1) Urine Leukocyte Esterase Negative (NEGATIVE) Urine RBC 11-20 /HPF (0-5) Urine WBC 11-20 /HPF (0-5) Urine Epithelial Cells Many /LPF (NONE) Urine Bacteria Many /HPF (NONE) Urine Opiates Screen Negative (NEGATIVE) Urine Methadone Screen Negative (NEGATIVE) Urine Barbiturates Screen Negative (NEGATIVE) Urine Phencyclidine Screen Negative (NEGATIVE) Urine Amphetamines Screen Negative (NEGATIVE) Urine Methamphetamines Screen Negative (NEGATIVE) Urine Benzodiazepines Screen Negative (NEGATIVE) Urine Cocaine Screen Negative (NEGATIVE) Urine Cannabinoids Screen Negative (NEGATIVE) Sodium Level 141 mmol/L (136-145) Potassium Level 4.4 mmol/L (3.5-5.1) Chloride Level 108 mmol/L (98-107) Carbon Dioxide Level 20 mmol/L (22-29) Anion Gap 17.4 mmol/L (8-16) Blood Urea Nitrogen 12 mg/dL (7-26) Creatinine 0.83 mg/dL (0.57-1.11) Estimat Glomerular Filtration Rate > 60 ML/MIN (60-) BUN/Creatinine Ratio 15 (6-25) Glucose Level 93 mg/dL (74-118) Calcium Level 9.2 mg/dL (8.4-10.2) Total Bilirubin 0.2 mg/dL (0.2-1.2) Aspartate Amino Transf (AST/SGOT) 16 IU/L (5-34) Alanine Aminotransferase (ALT/SGPT) 12 IU/L (0-55) Alkaline Phosphatase 65 IU/L (40-150) Creatine Kinase 40 IU/L (29-168) Creatine Kinase MB 0.80 ng/mL (0-5.0) Troponin I < 0.001 ng/mL (0-0.300) Total Protein 7.8 g/dL (6.5-8.1) Albumin 3.7 g/dL (3.5-5.0) Globulin 4.1 g/dL (2.3-3.5) Albumin/Globulin Ratio 0.9 (0.8-2.0) Lab results reviewed: Yes Imaging Imaging results reviewed: Yes Impressions IMPRESSION: 1. Distended gallbladder. Recommend right upper quadrant ultrasound. 2. Subtle findings which can be seen with gastritis. Query prior gastric surgery, as there is CT evidence to suggest prior gastric surgery. 3. Punctate nonobstructive right renal calculi. Critical Care Time Subsequent provider I assumed direction of critical care for this patient from another provider of my specialty. Assessment & Plan Reassessment Reassessment time: 02:04 Reassessment 44-year-old female at the ED with epigastric abdominal pain, history of gastric ulcers with prior gastric surgery. Patient's labwork unremarkable, CT scan concerning and recommend right upper carotid ultrasound. Patient is complaining of pain in the and was admitted for pain control and formal right upper quadrant ultrasound. Assessment & Plan Final Impression: (1) Peptic ulcer disease (2) UPPER ABDOMINAL PAIN, UNSPECIFIED (3) GENERALIZED ABDOMINAL PAIN Assessment & Plan CBC, CMP CT AP Depart Disposition: ADMITTED Last Vital Signs Date Time Temp Pulse Resp B/P (MAP) Pulse Ox O2 Delivery O2 Flow Rate FiO2 03/31/20 22:07 97.8 78 17 129/84 99 Home Meds Reported Medications Ranitidine Hcl (ZANTAC) 150 Mg Tablet, 150 MG PO PRN PRN for INDIGESTION THERAPEUTICALLY SUBSTITUTED WITH PEPCID 20MG 03/11/17 Zolmitriptan (Zomig) 5 Mg Tablet, 5 MG PO Q2-3H MAX DOSE 10 MG/DAY 08/13/12 Levothyroxine Sodium (Levothyroxine Sodium) 75 Mcg Tablet, 75 MCG PO DAILY 08/06/12 Esomeprazole Mag Trihydrate (Nexium) 40 Mg Capsule.dr, 40 MG PO BID 05/13/11 Amitriptyline Hcl (Elavil) 25 Mg Tab, 300 MG PO QHS 05/13/11 Ziprasidone Hcl (Geodon) 80 Mg Capsule, 100 MG PO QHS 05/13/11 Paroxetine Hcl (Paxil) 40 Mg Tablet, 40 MG PO QHS 05/13/11 Oxcarbazepine (Trileptal) 300 Mg Tablet, 300 MG PO DAILY 05/13/11 Medications in the ED Ondansetron HCl 4 mg NOW STAT IV ; Start 03/31/20 at 21:04; Stop 03/31/20 at 21:07; Status DC Pantoprazole Sodium 40 mg NOW STAT IV ; Start 03/31/20 at 21:04; Stop 03/31/20 at 21:07; Status DC Sodium Chloride 50 ml @ ud STK-MED ONCE .ROUTE ; Start 03/31/20 at 23:49; Stop 03/31/20 at 23:44; Status DC Iopamidol 74,000 mg STK-MED ONCE INJ ; Start 03/31/20 at 23:50; Stop 03/31/20 at 23:44; Status DC KINZA TOPETE, April 01, 2020 01:52
--- OUTSIDE RECORDS SUMMARY | 2020-04-01 03:01 | XMS REPORT ---
Author Author [facility] t Organization [facility] Address [address] [place] [address] Phone Unavailable Care Team Providers Care Bending Press Operator Name Role Phone EDI BRYAN, ROYAL PCP Cely TOPETE Attphys Unavailable PATY SINGER Attphys Unavailable Payers Payer Name Policy Type Policy Number Effective Date Expiration Date Cely kuo Medicare A & B [id number] 2007 00:00:00 [facility] Miscellaneous Indemnity [id number] 2009 00:00:00 [facility] Problems Condition Name Condition Details Condition Category Status Onset Date Resolution Date Last Treatment Date Treating Clinician Comments Source Peptic ulcer Peptic ulcer disease Problem Active [facility] Allergies, Adverse Reactions, Alerts Allergy Name Allergy Type Status Severity Reaction(s) Onset Date Inacti ve Date Treating Clinician Comments Source meperidine HCl Allergy to Substance Active Mild Itching 2019-09-03 0 0:00:00 [facility] Medications Ordered Medication Name Filled Medication Name Start Date Stop Da te Current Medication? Ordering Clinician Indication Dosage Frequency Signature (SIG) Comments Components Source Amitriptyline Hcl (Elavil) 25 Mg Tab Amitriptyline Hcl (Elavil) 25 Mg Tab Yes 300 Qhs [facility] Esomeprazole Mag Trihydrate (Nexium) 40 Mg Capsule. Esomeprazole Mag Trihydrate (Nexium) 40 Mg Capsule. Yes 40 T wice A Day [facility] Levothyroxine Sodium 75 Mcg Tablet Levothyroxine Sodium 75 Mcg Tablet Yes 75 Daily [facility] Oxcarbazepine (Trileptal) 300 Mg Tablet Oxcarbazepine (Trile ptal) 300 Mg Tablet Yes 300 Daily [facility] Paroxetine Hcl (Paxil) 40 Mg Tablet Paroxetine Hcl (Paxil) 40 Mg Tabl et Yes 40 Qhs [facility] Ranitidine Hcl (Zantac) 150 Mg Tablet Ranitidine Hcl (Zantac) 150 M g Tablet Yes 150 As Needed as needed for Indigestion [facility] Ziprasidone Hcl (Geodon) 80 Mg Capsule Ziprasidone Hcl (Geodon) 80 Mg Capsule Yes 100 Qhs [facility] Zolmitriptan (Zomig) 5 Mg Tablet Zolmitriptan (Zomig) 5 Mg Tablet Yes 5 Every 2-3 Hours [facility] Lactobacillus Acidophilus (Acidophilus) 1 Each Tablet, Tab Oral Lactobacillus Acidophilus (Acidophilus) 1 Each Tablet, Tab Oral 2017-03-11 00:00:0 0 No Twice A Day [facility] Dicyclomine Hcl (Bentyl) 10 Mg Capsule, 10 Mg Oral Dic yclomine Hcl (Bentyl) 10 Mg Capsule, 10 Mg Oral 2015-07-28 00:00:00 No 10 T hree Times A Day [facility] Josse Loaiza , 2015-05-21 00:00:00 No [facility] Sucralfate (Carafate) 1 Gm Tablet, 1 Gm Oral Sucralfat e (Carafate) 1 Gm Tablet, 1 Gm Oral 2015-05-21 00:00:00 No 1 Four Times Yari ly [facility] Triliptal , 600 Mg Oral Triliptal , 600 Mg Oral 2015-05-21 00:00 :00 No 600 Bedtime [facility] Procedures Procedure Date / Time Performed Performing Clinician Sourc e Computed tomography of abdomen and pelvis with contrast 2018 00:00:00 PATY SINGER [facility] Encounters Start Date/Time End Date/Time Encounter Type Admission Type [facility] Care Department Encounter ID Source 2019-11-13 20:01:00 2019-11-13 20:12:00 Departed Emergency Room [facility] [id number] [facility] 2019-09-03 14:39:00 2019-09-03 20:20:00 Departed Emergency Room 1 PATY SINGER [facility] [id number] [facility] 2018-07-07 23:15:00 2018-07-08 00:25:00 Departed Emergency Room [facility] [id number] [facility] Results Test Description Test Time Test Comments Results Result Comments Source CHEST SINGLE (PORTABLE) 2020-04-01 01:10:00 [facility] [address] [address] Patient Name: JESUS SPENCE MR #: [id number] : 1975 Age/Sex: 44/F Req #: [id number] Adm Physician: Ordered by: KINZA TOPETE DO Report #: [id number] Location: ER Room/Bed: Procedure: [id number] DX/CHEST SINGLE (PORTABLE) Exam Date: 03/31/20 Exam Time: 2345 REPORT STATUS: Signed EXAMINATION: CHEST SINGLE (PORTABLE) INDICATION: Abdominal pain COMPARISON: Day prior abdominal CT FINDINGS: TUBES and LINES: None. LUNGS: Normal lung volumes. Lungs are clear. No consolidations. PLEURA: No pleural effusion or pneumothorax. HEART AND MEDIASTINUM: The cardiomediastinal silhouette is unremarkable. BONES AND SOFT TISSUES: No acute osseous lesion. Soft tissues are unremarkable. UPPER ABDOMEN: No free air under the diaphragm. IMPRESSION: No acute thoracic radiographic abnormality. Signed by: Sergio Appiah DO on 04/01/2020 1:11 AM Dictated By: SERGIO APPIAH DO 0111 Transcribed By: TAMARA on 04/01/20110 COPY TO: KINZA TOPETE DO CT ABDOMEN/PELVIS W 2020-04-01 00:24:[address] [address] Patient Name: JESUS SPENCE MR #: [id number] : 1975 Age/Sex: 44/F Req #: [id number] Adm Physician: Ordered by: KINZA TOPETE DO Report #: [id number] Location: ER Room/Bed: Procedure: [id number] CT/CT ABDOMEN/PELVIS W Exam Date: 03/31/20 Exam Time: 2345 REPORT STATUS: Signed EXAM: CT Abdomen and Pelvis WITH contrast INDICATION: Abdominal pain COMPARISON: Abdominal CT 09/03/2019. TECHNIQUE: Abdomen and pelvis were scanned utilizing a multidetector helical scanner from the lung base to the pubic symphysis after administration of IV contrast. Coronal and sagittal reformations were obtained. Routine protocol was performed. Scan was performed when during portal venous phase. IV CONTRAST: 100 mL of Isovue 370 ORAL CONTRAST: None COMPLICATIONS: None RADIATION DOSE: Total DLP: 419 mGy*cm Estimated effective dose: (DLP x 0.015 x size factor) mSv CTDIvol has been reviewed. It is below the limits set by the Radiation Protocol Committee (RPC). Dose modulation, iterative reconstruction, and/or weight based adjustment of the mA/kV was utilized to reduce the radiation dose to as low as reasonably achievable. FINDINGS: LINES and TUBES: None. LOWER THORAX: Unremarkable HEPATOBILIARY: No focal hepatic lesions. No biliary ductal dilation. GALLBLADDER: No radio-opaque stones or sludge. No wall thickening. SPLEEN: No splenomegaly. PANCREAS: No focal masses or ductal dilatation. ADRENALS: No adrenal nodules KIDNEYS/URETERS: Kidneys enhance symmetrically. No hydronephrosis. No cystic or solid mass lesions. Stable small hypodensities in the kidneys are to small to characterize but likely annia ign, favor either cysts or calyceal diverticula. Punctate nonobstructive right renal calculi. GI TRACT: No abnormal distention, or evidence of bowel obstruction. Subtle gastric wall thickening and submucosal edema. Surgical clips at the gastroesophageal junction, and possible bowel sutures along the lesser curvature of the stomach, probably due to prior gastric surgery. Appendix is normal. PELVIC ORGANS/BLADDER: 1.8 cm right ovarian corpus luteum. Uterus and bladder unremarkable.. LYMPH NODES: No lymphadenopathy. VESSELS: Unremarkable. PERITONEUM / RETROPERITONEUM: No free air or fluid. BONES: Unremarkable. SOFT TISSUES: Stable appearance of small supraumbilical ventral abdominal hernias.. IMPRESSION: 1. Distended gallbladder. Recommend right upper quadrant ultrasound. 2. Subtle findings which can be seen with gastritis. Query prior gastric surgery, as there is CT evidence to suggest prior gastric surgery. 3. Punctate nonobstructive right renal calculi. Signed by: Sergio Appiah DO on 04/01/2020 12:36 AM Dictated By: SERGIO APPIAH DO Transcribed By: TAMARA on 04/01/2035 COPY TO: KINZA TOPETE DO CT ABDOMEN/PELVIS W 2019-09-03 19:55:[address] [address] Patient Name: JESUS SPENCE MR #: [id number] : 1975 Age/Sex: 44/F Req #: [id number] Adm Physician: Ordered by: PATY SINGER DO Report #: [id number] Location: ER Room/Bed: Procedure: [id number] CT/CT ABDOMEN/PELVIS W Exam Date: 09/03/19 Exam Time: 185 REPORT STATUS: Signed EXAM: CT Abdomen and [...] Level (test code = 2951-2) 136 136-145 [facility] Nmtyv4944-00-71 17:38:00* Test Item Value Reference Range Interpretation Comments Potassium Level (test code = 2823-3) 4.2 3.5-5.1 [facility] CenterChloride Kbtyt4510-71-96 17:38:00* Test Item Value Reference Range Interpretation Comments Chloride Level (test code = 2075-0) 99 98-107 [facility] CenterCarbon Dioxide Tkozk0433-25-46 17:38:00* Test Item Value Reference Range Interpretation Comments Carbon Dioxide Level (test code = 2028-9) 25 22-29 [facility] CenterAnion Sgw9928-67-11 17:38:00* Test Item Value Reference Range Interpretation Comments Anion Gap (test code = 91992-2) 16.2 8-16 H [facility] CenterBlood Urea Wsfllijt1975-59-32 17:38:00* Test Item Value Reference Range Interpretation Comments Blood Urea Nitrogen (test code = 3094-0) 11 7-26 [facility] CenterCreatinine2019-11-01 17:38:00* Test Item Value Reference Range Interpretation Comments Creatinine (test code = 2160-0) 0.76 0.57-1.11 [facility] CenterBUN/Creatinine Rioyb3279-74-04 17:38:00* Test Item Value Reference Range Interpretation Comments BUN/Creatinine Ratio (test code = 3097-3) 14 6-25 [facility] CenterEstimat Glomerular Filtration Rate 2019-09-03 17:38:00* Test Item Value Reference Range Interpretation Comments Estimat Glomerular Filtration Rate (test code = 269479761) > 60 >60 Ranges were taken from the National Kidney Disease Education Program and the [employer] literature.Reference ranges:60 or greater: Bcbgns17-81 ( for 3 consecutive months): Chronic kidney disease 15 or less: Kidney failureOdessa Regional Medical CenterGlucose Fqstm1945-41-55 17:38:00* Test Item Value Reference Range Interpretation Comments Glucose Level (test code = QEH6530) 86 74-118 [facility] CenterCalcium Comzx4141-83-18 17:38:00* Test Item Value Reference Range Interpretation Comments Calcium Level (test code = 21793-3) 9.7 8.4-10.2 [facility] CenterMagnesium Hgkdp4094-44-31 17:38:00* Test Item Value Reference Range Interpretation Comments Magnesium Level (test code = 77181-7) 1.7 1.3-2.1 [facility] CenterTotal Oxfeijcwg3118-73-62 17:38:00* Test Item Value Reference Range Interpretation Comments Total Bilirubin (test code = 1975-2) 0.2 0.2-1.2 [facility] CenterAspartate Amino Transf (AST/SGOT) 2019-09-03 17:38:00* Test Item Value Reference Range Interpretation Comments Aspartate Amino Transf (AST/SGOT) (test code = Aspartate Amino Transf (AST/SGOT)) 16 5-34 [facility] CenterAlanine Aminotransferase (ALT/SGPT) 2019-09-03 17:38:00* Test Item Value Reference Range Interpretation Comments Alanine Aminotransferase (ALT/SGPT) (test code = 1742-6) 11 0-55 [facility] CenterTotal Hdnxrha2321-94-78 17:38:00* Test Item Value Reference Range Interpretation Comments Total Protein (test code = 2885-2) 7.5 6.5-8.1 [facility] CenterAlbumin2019-11-01 17:38:00* Test Item Value Reference Range Interpretation Comments Albumin (test code = 1751-7) 4.0 3.5-5.0 [facility] CenterGlobulin2019-11-01 17:38:00* Test Item Value Reference Range Interpretation Comments Globulin (test code = 88249-2) 3.5 2.3-3.5 [facility] CenterAlbumin/Globulin Xaslr9609-84-18 17:38:00 * Test Item Value Reference Range Interpretation Comments Albumin/Globulin Ratio (test code = 1759-0) 1.1 0.8-2.0 [facility] CenterAlkaline Talozmwidtb4602-96-41 17:38:00* Test Item Value Reference Range Interpretation Comments Alkaline Phosphatase (test code = 6768-6) 79 40-150 [facility] CenterAmylase Mrsyi3477-33-86 17:38:00* Test Item Value Reference Range Interpretation Comments Amylase Level (test code = 1798-8) 41 25-125 [facility] CenterLipase2019-11-01 17:38:00* Test Item Value Reference Range Interpretation Comments Lipase (test code = 3040-3) 38 8-78 [facility] Hllfm8792-02-33 17:38:00* Test Item Value Reference Range Interpretation Comments Sodium Level (test code = 2951-2) 136 136-145 [facility] CenterPotassium Lsygf4603-67-96 17:38:00* Test Item Value Reference Range Interpretation Comments Potassium Level (test code = 2823-3) 4.2 3.5-5.1 [facility] CenterChloride Rlbsi7597-32-42 17:38:00* Test Item Value Reference Range Interpretation Comments Chloride Level (test code = 2075-0) 99 98-107 [facility] CenterCarbon Dioxide Wpmde8912-13-69 17:38:00* Test Item Value Reference Range Interpretation Comments Carbon Dioxide Level (test code = 2028-9) 25 22-29 [facility] CenterAnion Suw1018-13-86 17:38:00* Test Item Value Reference Range Interpretation Comments Anion Gap (test code = 80527-5) 16.2 8-16 H [facility] CenterBlood Urea Bombioqv1358-89-73 17:38:00* Test Item Value Reference Range Interpretation Comments Blood Urea Nitrogen (test code = 3094-0) 11 7-26 [facility] CenterCreatinine2019-11-01 17:38:00* Test Item Value Reference Range Interpretation Comments Creatinine (test code = 2160-0) 0.76 0.57-1.11 [facility] CenterBUN/Creatinine Eldbi9876-95-40 17:38:00* Test Item Value Reference Range Interpretation Comments BUN/Creatinine Ratio (test code = 3097-3) 14 6-25 [facility] CenterEstimat Glomerular Filtration Rate 2019-09-03 17:38:00* Test Item Value Reference Range Interpretation Comments Estimat Glomerular Filtration Rate (test code = 054433658) > 60 >60 Ranges were taken from the National Kidney Disease Education Program and the [place] [employer] [place] [facility] Kid[employer] Foundation literature.Reference ranges:60 or greater: Aphxzh78-78 ( for 3 consecutive months): Chronic kidney disease 15 or less: Kidney failureOdessa Regional Medical CenterGlucose Ehatl7647-79-23 17:38:00* Test Item Value Reference Range Interpretation Comments Glucose Level (test code = OHF6884) 86 74-118 [facility] CenterCalcium Foxdt4900-91-35 17:38:00* Test Item Value Reference Range Interpretation Comments Calcium Level (test code = 74448-1) 9.7 8.4-10.2 [facility] CenterMagnesium Ngrca6646-00-72 17:38:00* Test Item Value Reference Range Interpretation Comments Magnesium Level (test code = 67341-9) 1.7 1.3-2.1 [facility] CenterTotal Pvqvlmxkz3878-72-43 17:38:00* Test Item Value Reference Range Interpretation Comments Total Bilirubin (test code = 1975-2) 0.2 0.2-1.2 [facility] CenterAspartate Amino Transf (AST/SGOT) 2019-09-03 17:38:00* Test Item Value Reference Range Interpretation Comments Aspartate Amino Transf (AST/SGOT) (test code = Aspartate Amino Transf (AST/SGOT)) 16 5-34 [facility] CenterAlanine Aminotransferase (ALT/SGPT) 2019-09-03 17:38:00* Test Item Value Reference Range Interpretation Comments Alanine Aminotransferase (ALT/SGPT) (test code = 1742-6) 11 0-55 [facility] CenterTotal Lgfuynl2063-67-81 17:38:00* Test Item Value Reference Range Interpretation Comments Total Protein (test code = 2885-2) 7.5 6.5-8.1 [facility] CenterAlbumin2019-11-01 17:38:00* Test Item Value Reference Range Interpretation Comments Albumin (test code = 1751-7) 4.0 3.5-5.0 [facility] CenterGlobulin2019-11-01 17:38:00* Test Item Value Reference Range Interpretation Comments Globulin (test code = 63896-4) 3.5 2.3-3.5 [facility] CenterAlbumin/Globulin Iiota2278-75-66 17:38:00 * Test Item Value Reference Range Interpretation Comments Albumin/Globulin Ratio (test code = 1759-0) 1.1 0.8-2.0 [facility] CenterAlkaline Meitczdcuho5535-09-99 17:38:00* Test Item Value Reference Range Interpretation Comments Alkaline Phosphatase (test code = 6768-6) 79 40-150 [facility] CenterAmylase Rcozp2107-59-30 17:38:00* Test Item Value Reference Range Interpretation Comments Amylase Level (test code = 1798-8) 41 25-125 [facility] CenterLipase2019-11-01 17:38:00* Test Item Value Reference Range Interpretation Comments Lipase (test code = 3040-3) 38 8-78 [facility] CenterABDOMEN-1VIEW (KUB)2019-09-03 17:27:00 [facility] [address] [address] Patient Name: JESUS SPENCE MR #: [id number] : 1975 Age/Sex: 44/F Req #: [id number] Adm Physician: Ordered by: JANNY WALLACE AUTOMOTIVE SALES REPRESENTATIVE Report #: [id number] Location: ER Room/Bed: Procedure: [id number] DX/ABDOMEN-1VIEW (KUB) Exam Date: 09/03/19 Exam Sukhjinder [...] TAMARA on 09/03/191728 COPY TO: JANNY MEZA AUTOMOTIVE SALES REPRESENTATIVE White Blood Pqklz4414-36-84 17:26:00* Test Item Value Reference Range Interpretation Comments White Blood Count (test code = 6690-2) 10.67 4.8-10.8 [facility] CenterRed Blood Hehkr6028-99-68 17:26:00* Test Item Value Reference Range Interpretation Comments Red Blood Count (test code = 789-8) 4.63 3.6-5.1 [facility] CenterHemoglobin2019-11-01 17:26:00* Test Item Value Reference Range Interpretation Comments Hemoglobin (test code = 52785-4) 15.0 12.0-16.0 [facility] CenterHematocrit2019-11-01 17:26:00* Test Item Value Reference Range Interpretation Comments Hematocrit (test code = 4544-3) 44.4 34.2-44.1 H [facility] CenterMean Corpuscular Vpypuh5938-95-98 17:26:00* Test Item Value Reference Range Interpretation Comments Mean Corpuscular Volume (test code = 787-2) 95.9 81-99 [facility] CenterMean Corpuscular Rxrqpyevrq9492-23-04 17:26:00* Test Item Value Reference Range Interpretation Comments Mean Corpuscular Hemoglobin (test code = 785-6) 32.4 28-32 H [facility] CenterMean Corpuscular Hemoglobin Concent 2019-09-03 17:26:00* Test Item Value Reference Range Interpretation Comments Mean Corpuscular Hemoglobin Concent (test code = 786-4) 33.8 31-35 [facility] CenterRed Cell Distribution Wqqsd7403-21-01 17:26:00* Test Item Value Reference Range Interpretation Comments Red Cell Distribution Width (test code = 90844-6) 13.3 11.7 -14.4 [facility] CenterPlatelet Ruqjy5936-27-64 17:26:00* Test Item Value Reference Range Interpretation Comments Platelet Count (test code = 777-3) 395 140-360 H [facility] CenterNeutrophils (%) (Auto)2019-09-03 17:26:00 * Test Item Value Reference Range Interpretation Comments Neutrophils (%) (Auto) (test code = 76290-2) 73.4 38.7-80.0 [facility] CenterLymphocytes (%) (Auto)2019-09-03 17:26:00 * Test Item Value Reference Range Interpretation Comments Lymphocytes (%) (Auto) (test code = 736-9) 17.9 18.0-39.1 L [facility] CenterMonocytes (%) (Auto)2019-09-03 17:26:00* Test Item Value Reference Range Interpretation Comments Monocytes (%) (Auto) (test code = 5905-5) 6.6 4.4-11.3 [facility] CenterEosinophils (%) (Auto)2019-09-03 17:26:00 * Test Item Value Reference Range Interpretation Comments Eosinophils (%) (Auto) (test code = 713-8) 1.0 0.0-6.0 [facility] CenterBasophils (%) (Auto)2019-09-03 17:26:00* Test Item Value Reference Range Interpretation Comments Basophils (%) (Auto) (test code = 706-2) 0.8 0.0-1.0 [facility] CenterIM GRANULOCYTES %2019-09-03 17:26:00* Test Item Value Reference Range Interpretation Comments IM GRANULOCYTES % (test code = IM GRANULOCYTES %) 0.3 0.0- 1.0 [facility] CenterNeutrophils # (Auto)2019-09-03 17:26:00* Test Item Value Reference Range Interpretation Comments Neutrophils # (Auto) (test code = 751-8) 7.8 2.1-6.9 H [facility] CenterLymphocytes # (Auto)2019-09-03 17:26:00* Test Item Value Reference Range Interpretation Comments Lymphocytes # (Auto) (test code = 59488-6) 1.9 1.0-3.2 [facility] CenterMonocytes # (Auto)2019-09-03 17:26:00* Test Item Value Reference Range Interpretation Comments Monocytes # (Auto) (test code = 742-7) 0.7 0.2-0.8 [facility] CenterEosinophils # (Auto)2019-09-03 17:26:00* Test Item Value Reference Range Interpretation Comments Eosinophils # (Auto) (test code = 711-2) 0.1 0.0-0.4 [facility] CenterBasophils # (Auto)2019-09-03 17:26:00* Test Item Value Reference Range Interpretation Comments Basophils # (Auto) (test code = 704-7) 0.1 0.0-0.1 [facility] CenterAbsolute Immature Granulocyte (auto 2019-09-03 17:26:00* Test Item Value Reference Range Interpretation Comments Absolute Immature Granulocyte (auto (emilee t code = Absolute Immature Granulocyte (auto) 0.03 0-0.1 [facility] CenterWhite Blood Kbvpz6434-32-55 17:26:00* Test Item Value Reference Range Interpretation Comments White Blood Count (test code = 6690-2) 10.67 4.8-10.8 [facility] CenterRed Blood Lnjvt5829-26-64 17:26:00* Test Item Value Reference Range Interpretation Comments Red Blood Count (test code = 789-8) 4.63 3.6-5.1 [facility] CenterHemoglobin2019-11-01 17:26:00* Test Item Value Reference Range Interpretation Comments Hemoglobin (test code = 93217-7) 15.0 12.0-16.0 [facility] CenterHematocrit2019-11-01 17:26:00* Test Item Value Reference Range Interpretation Comments Hematocrit (test code = 4544-3) 44.4 34.2-44.1 H [facility] CenterMean Corpuscular Qhrewt4646-58-46 17:26:00* Test Item Value Reference Range Interpretation Comments Mean Corpuscular Volume (test code = 787-2) 95.9 81-99 [facility] CenterMean Corpuscular Yrmmodtcsa3601-68-10 17:26:00* Test Item Value Reference Range Interpretation Comments Mean Corpuscular Hemoglobin (test code = 785-6) 32.4 28-32 H [facility] CenterMean Corpuscular Hemoglobin Concent 2019-09-03 17:26:00* Test Item Value Reference Range Interpretation Comments Mean Corpuscular Hemoglobin Concent (test code = 786-4) 33.8 31-35 [facility] CenterRed Cell Distribution Favag4618-75-95 17:26:00* Test Item Value Reference Range Interpretation Comments Red Cell Distribution Width (test code = 01668-8) 13.3 11.7 -14.4 [facility] CenterPlatelet Vorzc2760-34-71 17:26:00* Test Item Value Reference Range Interpretation Comments Platelet Count (test code = 777-3) 395 140-360 H [facility] CenterNeutrophils (%) (Auto)2019-09-03 17:26:00 * Test Item Value Reference Range Interpretation Comments Neutrophils (%) (Auto) (test code = 80790-6) 73.4 38.7-80.0 [facility] CenterLymphocytes (%) (Auto)2019-09-03 17:26:00 * Test Item Value Reference Range Interpretation Comments Lymphocytes (%) (Auto) (test code = 736-9) 17.9 18.0-39.1 L [facility] CenterMonocytes (%) (Auto)2019-09-03 17:26:00* Test Item Value Reference Range Interpretation Comments Monocytes (%) (Auto) (test code = 5905-5) 6.6 4.4-11.3 [facility] CenterEosinophils (%) (Auto)2019-09-03 17:26:00 * Test Item Value Reference Range Interpretation Comments Eosinophils (%) (Auto) (test code = 713-8) 1.0 0.0-6.0 [facility] CenterBasophils (%) (Auto)2019-09-03 17:26:00* Test Item Value Reference Range Interpretation Comments Basophils (%) (Auto) (test code = 706-2) 0.8 0.0-1.0 [facility] CenterIM GRANULOCYTES %2019-09-03 17:26:00* Test Item Value Reference Range Interpretation Comments IM GRANULOCYTES % (test code = IM GRANULOCYTES %) 0.3 0.0- 1.0 [facility] CenterNeutrophils # (Auto)2019-09-03 17:26:00* Test Item Value Reference Range Interpretation Comments Neutrophils # (Auto) (test code = 751-8) 7.8 2.1-6.9 H [facility] CenterLymphocytes # (Auto)2019-09-03 17:26:00* Test Item Value Reference Range Interpretation Comments Lymphocytes # (Auto) (test code = 31166-7) 1.9 1.0-3.2 [facility] CenterMonocytes # (Auto)2019-09-03 17:26:00* Test Item Value Reference Range Interpretation Comments Monocytes # (Auto) (test code = 742-7) 0.7 0.2-0.8 [facility] CenterEosinophils # (Auto)2019-09-03 17:26:00* Test Item Value Reference Range Interpretation Comments Eosinophils # (Auto) (test code = 711-2) 0.1 0.0-0.4 [facility] CenterBasophils # (Auto)2019-09-03 17:26:00* Test Item Value Reference Range Interpretation Comments Basophils # (Auto) (test code = 704-7) 0.1 0.0-0.1 [facility]ul[facility] (auto 2019-09-03 17:26:00* Test Item Value Reference Range Interpretation Comments Absolute Immature Granulocyte (auto (emilee t code = Absolute Immature Granulocyte (auto) 0.03 0-0.1 [facility] Opiates [id number] 16:41:00* Test Item Value Reference Range Interpretation Comments Urine Opiates Screen (test code = 43264-0) NEGATIVE NEGATIVE ALL TESTS PERFORMED MANUALLY ON [employer] TOX/SEE TESTOd[facility] Medical CenterUrine Barbiturates [id number] 16:41:00* Test Item Value Reference Range Interpretation Comments Urine Barbiturates Screen (test code = 094076256) NEGATIVE NEGA TIVE [facility] Phencyclidine [id number] 16:41:00* Test Item Value Reference Range Interpretation Comments Urine Phencyclidine Screen (test code = 40689-0) NEGATIVE NEGAT SADIQ [facility] Amphetamines [id number] 16:41:00* Test Item Value Reference Range Interpretation Comments Urine Amphetamines Screen (test code = 60454-5) NEGATIVE NEGATI VE [facility] Methamphetamines [id number] 16:41:00* Test Item Value Reference Range Interpretation Comments Urine Methamphetamines Screen (test code = Urine Metha mphetamines Screen) NEGATIVE NEGATIVE [facility] Benzodiazepines [id number] 16:41:00* Test Item Value Reference Range Interpretation Comments Urine Benzodiazepines Screen (test code = 96974-4) NEGATIVE NEG ATIVE [facility] Cocaine [id number] 16:41:00* Test Item Value Reference Range Interpretation Comments Urine Cocaine Screen (test code = 3398-5) NEGATIVE NEGATIVE [facility] Cannabinoids [id number] 16:41:00* Test Item Value Reference Range Interpretation Comments Urine Cannabinoids Screen (test code = 84983-8) NEGATIVE NEGATI VE THESE RESULTS ARE FOR MEDICAL TREATMENT ONLYTHIS REPORT CONTAINS UNCONFIR MED SCREENING RESULTS*POSITIVE RESULTS WILL BE CONFIRMED BY REFERENCE LAB UPON R EQUEST CUT-OFFDRUG CLASS CONCENTRATION ng/mLAmphetamines 1000Methamphetamines 1000Cocaine 300Opiate 300Phencyc lidine 25Cannabinoid 50Barbiturates 300Benzodiazepine 300Methadone 300[facility] Methadone [id number] 16:41:00* Test Item Value Reference Range Interpretation Comments Urine Methadone Screen (test code = 67474-4) NEGATIVE NEGATIVE THESE RESULTS ARE FOR MEDICAL TREATMENT ONLYTHIS REPORT CONTAINS UNCONFIR MED SCREENING RESULTS*POSITIVE RESULTS WILL BE CONFIRMED BY REFERENCE LAB UPON R EQUEST CUT-OFFDRUG CLASS CONCENTRATION ng/mLAmphetamines 1000Methamphetamines 1000Cocaine Metabolite 300Opiate 300Phencyc lidine 25Cannabinoid 50Barbiturates 300Benzodiazepine 300Methadone 300[facility] Center[facility] Opiates [id number] 16:41:00* Test Item Value Reference Range Interpretation Comments Urine Opiates Screen (test code = 61725-8) NEGATIVE NEGATIVE ALL TESTS PERFORMED MANUALLY ON [employer] TOX/SEE TESTOd[facility] Medical CenterUrine Barbiturates [id number] 16:41:00* Test Item Value Reference Range Interpretation Comments Urine Barbiturates Screen (test code = 259908680) NEGATIVE NEGA TIVE [facility] Phencyclidine [id number] 16:41:00* Test Item Value Reference Range Interpretation Comments Urine Phencyclidine Screen (test code = 98585-7) NEGATIVE NEGAT SADIQ [facility] Amphetamines [id number] 16:41:00* Test Item Value Reference Range Interpretation Comments Urine Amphetamines Screen (test code = 90284-6) NEGATIVE NEGATI VE [facility] Methamphetamines [id number] 16:41:00* Test Item Value Reference Range Interpretation Comments Urine Methamphetamines Screen (test code = Urine Metha mphetamines Screen) NEGATIVE NEGATIVE [facility] Benzodiazepines [id number] 16:41:00* Test Item Value Reference Range Interpretation Comments Urine Benzodiazepines Screen (test code = 88456-8) NEGATIVE NEG ATIVE [facility] Cocaine [id number] 16:41:00* Test Item Value Reference Range Interpretation Comments Urine Cocaine Screen (test code = 3398-5) NEGATIVE NEGATIVE [facility] Cannabinoids [id number] 16:41:00* Test Item Value Reference Range Interpretation Comments Urine Cannabinoids Screen (test code = 55429-6) NEGATIVE NEGATI VE THESE RESULTS ARE FOR MEDICAL TREATMENT ONLYTHIS REPORT CONTAINS UNCONFIR MED SCREENING RESULTS*POSITIVE RESULTS WILL BE CONFIRMED BY REFERENCE LAB UPON R EQUEST CUT-OFFDRUG CLASS CONCENTRATION ng/mLAmphetamines 1000Methamphetamines 1000Cocaine 300Opiate 300Phencyc lidine 25Cannabinoid 50Barbiturates 300Benzodiazepine 300Methadone 300[facility] Center[facility] Methadone [id number] 16:41:00* Test Item Value Reference Range Interpretation Comments Urine Methadone Screen (test code = 50928-7) NEGATIVE NEGATIVE THESE RESULTS ARE FOR MEDICAL TREATMENT ONLYTHIS REPORT CONTAINS UNCONFIR MED SCREENING RESULTS*POSITIVE RESULTS WILL BE CONFIRMED BY REFERENCE LAB UPON R EQUEST CUT-OFFDRUG CLASS CONCENTRATION ng/mLAmphetamines 1000Methamphetamines 1000Cocaine Metabolite 300Opiate 300Phencyc lidine 25Cannabinoid 50Barbiturates 300Benzodiazepine 300Methadone 300[facility] CenterU[facility] [id number] 16:21:00* Test Item Value Reference Range Interpretation Comments Urine Test (test code = 2106-3) NEGATIVE NEGATIVE [facility] [id number] 16:21:00* Test Item Value Reference Range Interpretation Comments Urine Test (test code = 2106-3) NEGATIVE NEGATIVE [facility]
[2020-04-01] MEDS ORDERED: ONDANSETRON HCL INJ 2MG/ML 2ML 2 MG/ML VIAL IV STA (03:03)
[2020-04-01] MEDS ORDERED: DEXILANT60 MG PO (05:07)
[2020-04-01] MEDS ORDERED: PEPCID20 MG PO (05:09)
[2020-04-01] MEDS ORDERED: LYRICA75 MG PO (05:10)
[2020-04-01] MEDS ORDERED: METOCLOPRAMIDE10 MG PO (05:11)
[2020-04-01] MEDS ORDERED: BUPROPION HCL100 MG PO (05:14)
[2020-04-01] MEDS ORDERED: AMITRIPTYLINE HCL 25 MG TAB PO ONE (05:15)
[2020-04-01] MEDS ORDERED: ZOLMITRIPTAN 5 MG PO PRN (06:15)
[2020-04-01] MEDS: FAMOTIDINE 20 MG TAB PO SCH ×2 (07:45→14:16)
[2020-04-01] MEDS: METOCLOPRAMIDE HCL 10 MG TAB PO SCH ×3 (07:47→17:00)
[2020-04-01] MEDS: HYDROMORPHONE 1MG/1ML INJ IV PRN ×4 (07:50→21:02)
--- NOTE | 2020-04-01 07:58 | History and Physical ---
REASON FOR ADMISSION: Abdominal pain. HISTORY OF PRESENT ILLNESS: The patient is a 44-year-old lady, well-known to me with a history of fibromyalgia, anxiety, reflux disease, hypertension, who presented with severe abdominal pain mostly in the mid epigastric area, similar to a prior previous ulcer pain, but she was also noticed on CT scan to have some evidence of gastritis as well as possible gallbladder issues, so she has been admitted for further evaluation. PAST MEDICAL HISTORY: Significant for anxiety, hypertension, reflux disease, and fibromyalgia. MEDICATIONS: See MAR. ALLERGIES: DEMEROL. SOCIAL HISTORY: Nonsmoker, nondrinker. Lives at home with her fiance. FAMILY HISTORY: Hypertension. PHYSICAL EXAMINATION: VITAL SIGNS: Temperature 98.6, blood pressure 156/74, pulse 74, sats 98% on room air. GENERAL: She is in no apparent distress, lying in bed. NECK: Supple. CARDIOVASCULAR: Regular rate and rhythm. LUNGS: Clear to auscultation bilaterally. ABDOMEN: She is tender in the mid epigastric area with no peritoneal signs, but she does have good bowel sounds. Nondistended. EXTREMITIES: No clubbing or cyanosis. NEUROLOGIC: Nonfocal. ASSESSMENT/PLAN: 1. Gastritis. We will continue with her IV proton pump inhibitor and Zofran. 2. Potential gallbladder disease. We will do an ultrasound, may be to do a HIDA scan to further assess. 3. Abdominal pain. We will continue with pain control. 4. Fibromyalgia. We will continue with her medication. 5. Hypertension. We will continue to monitor. 6. Anxiety. We will continue with her home medication. Please see hospital chart for full details. MD WES Renteria/TAD /[phone]
[2020-04-01] MEDS ORDERED: BUPROPION HCL 100 MG TAB PO SCH (09:00)
[2020-04-01] MEDS: PREGABALIN 75 MG CAP PO SCH ×2 (09:44→19:28)
[2020-04-01] MEDS: OXCARBAZEPINE 300 MG TAB PO SCH ×2 (09:45→19:28)
[2020-04-01] MEDS: PANTOPRAZOLE 40 MG 10ML VIAL IV SCH ×2 (09:45→14:16)
--- NOTE | 2020-04-01 10:29 | Diagnostic Imaging Report ---
EXAM: Right upper quadrant abdominal ultrasound INDICATION: Right upper quadrant pain COMPARISON: CT abdomen/pelvis 03-31-2020. TECHNIQUE: Transverse and longitudinal images of the right upper quadrant abdomen were obtained FINDINGS: Liver: Size: 15.2 cm in the right midclavicular line, normal Appearance: Normal echogenicity, smooth contour Mass: No focal masses Gallbladder: Mildly distended. No significant wall thickening, stone, or reported sonographic Dixon's sign. Possible gallbladder sludge versus artifact. Gallbladder wall measures 0.3 cm. Bile Ducts: Intrahepatic Ducts: No dilatation Extrahepatic Ducts: Common bile duct measures 0.2 cm, no dilatation Pancreas: Visualized portions of the pancreatic head, neck and proximal body are normal. Kidney: The right kidney measures 11.5 cm without evidence of hydronephrosis or stone. Minimally complex predominately simple 1.6 cm right lower pole anechoic cyst with echogenic foci along the wall. Vessels: Aorta: Visualized portions are normal Inferior Vena Cava: Visualized portions are normal Main Portal Vein: 0.6 cm, normal size with hepatopetal flow. Free Fluid: No evidence of ascites. IMPRESSION: Mildly distended gallbladder with gallbladder sludge versus artifact. No specific sonographic findings of cholecystitis. No evidence of cholelithiasis. Minimally complex 1.6 cm right lower pole renal cyst, for which a follow-up nonemergent renal ultrasound is recommended. Signed by: Dr. Jose Robins MD on 04/01/2020 10:25 AM
--- NOTE | 2020-04-01 11:49 | NUR ---
rec'd report from PETEY MORELAND FOR CONTINUITY OF CARE
--- NOTE | 2020-04-01 13:26 | NUR ---
call placed to dr. perez's for this pt; wanting to eat and placed on npo status
--- NOTE | 2020-04-01 13:32 | NUR ---
spoke with martha at the office; dillon jones/kelle
--- NOTE | 2020-04-01 13:50 | NUR ---
g.i. soft diet ordered for this pt.
--- NOTE | 2020-04-01 17:49 | NUR ---
pt refused to keep monitors on
[2020-04-01] MEDS: BUPROPION HCL SR 150 MG TAB PO SCH ×2 (19:28→21:48)
[2020-04-01 20:20] VITALS: BP 105/68
--- NOTE | 2020-04-01 20:20 | NUR ---
patient is a new admit that arrived from the ER patient is awake and talking. patient has been assisted into the bed. bed is in the lowest position and call light is within reach. will continue to monitor patient.
[2020-04-01 20:41] VITALS: BP 105/68
[2020-04-01] MEDS: ONDANSETRON HCL INJ 2MG/ML 2ML 2 MG/ML VIAL IV PRN (21:02)
[2020-04-01] MEDS: AMITRIPTYLINE HCL 25 MG TAB PO SCH (21:47)
[2020-04-01] MEDS: ZIPRASIDONE 20 MG CAP PO SCH (21:47)
[2020-04-01] MEDS: PAROXETINE HCL 20 MG TAB PO SCH (21:47)
[2020-04-02 00:54] VITALS: BP 117/78
[2020-04-02 05:35] VITALS: BP 100/66
[2020-04-02] MEDS: ONDANSETRON HCL INJ 2MG/ML 2ML 2 MG/ML VIAL IV PRN ×2 (06:05→09:06)
[2020-04-02] MEDS: HYDROMORPHONE 1MG/1ML INJ IV PRN ×6 (06:05→22:05)
--- NOTE | 2020-04-02 06:35 | NUR ---
patient is resting comfortably in the bed. bed is in lowest position and call light is within reach.
[2020-04-02] MEDS: OXCARBAZEPINE 300 MG TAB PO SCH ×2 (07:56→17:12)
[2020-04-02] MEDS: PANTOPRAZOLE 40 MG 10ML VIAL IV SCH ×2 (07:56→17:12)
[2020-04-02] MEDS: PREGABALIN 75 MG CAP PO SCH ×2 (07:56→17:12)
[2020-04-02] MEDS: METOCLOPRAMIDE HCL 10 MG TAB PO SCH ×3 (07:56→17:12)
[2020-04-02 08:08] VITALS: BP 101/57
[2020-04-02] MEDS: FAMOTIDINE 20 MG/2 ML VIAL IV SCH ×2 (09:07→17:12)
--- NOTE | 2020-04-02 09:55 | NUR ---
RECEIVED REPORT FROM NANDINI RICKETTS RN.
[2020-04-02 10:08] VITALS: BP 101/57
--- NOTE | 2020-04-02 10:13 | NUR ---
PATIENT LEFT FOR HIDA SCAN VIA WHEELCHAIR IN STABLE CONDITION.
--- NOTE | 2020-04-02 14:33 | Diagnostic Imaging Report ---
Hepatobiliary Scan with Gallbladder Ejection Fraction Clinical information: Generalized abdominal pain Report: Following intravenous administration of 6.5 millicuries of Tc-99m mebrofenin, dynamic images of the abdomen in the anterior projection were obtained through 30 minutes. Sincalide (CCK analog) 1.7 micrograms was administered intravenously over 30 minutes with additional imaging for determination of gallbladder ejection fraction. Perfusion to the liver is normal. Extraction of tracer from the blood pool by the liver parenchyma is normal. Tracer is seen promptly within the biliary tract. The gallbladder begins to fill by 8 minutes post-injection of tracer and fills adequately. Tracer is seen in the small bowel by 18 minutes. The gallbladder ejection fraction with administration of sincalide is 66% (normal greater than 40%). Impression: 1. Filling of the gallbladder excludes the diagnosis of acute cystic duct obstruction/acute cholecystitis. 2. Normal gallbladder ejection fraction of 66% does not support the clinical diagnosis of chronic cholecystitis/gallbladder dyskinesia. Signed by: Dr. Dorie Mead M.D. on 04/02/2020 2:30 PM
[2020-04-02] MEDS ORDERED: ZOLMITRIPTAN PO PRN (16:30)
[2020-04-02 16:47] VITALS: BP 120/74
[2020-04-02] MEDS: BUPROPION HCL SR 150 MG TAB PO SCH (17:12)
--- NOTE | 2020-04-02 19:30 | NUR ---
BEDSIDE SHIFT REPORT RECEIVED FROM DAY RN. PT IS ALERT AND ORIENTED X4. PT AMBULATES WITHOUT DIFFICULTY. RESPIRATIONS ARE EVEN AND UNLABORED. PT C/O OF ABDOMINAL PAIN INTERMITTENTLY. PAIN CONTROLLED BY DILAUDID IV. PT TOLERATING GI SOFT DIET. VOIDING WITHOUT DIFFICULTY. 24 G SL IN LEFT HAND. SITE HEALTHY. PT RESTING IN BED IN SEMI-FOWLERS POSITION WATCHING TV. CALL LIGHT WITHIN REACH. BED IN LOW POSITION.
[2020-04-02 20:00] VITALS: BP 98/73
[2020-04-02] MEDS: AMITRIPTYLINE HCL 25 MG TAB PO SCH (22:03)
[2020-04-02] MEDS: PAROXETINE HCL 20 MG TAB PO SCH (22:03)
[2020-04-02] MEDS: ZIPRASIDONE 20 MG CAP PO SCH (22:04)
[2020-04-03 00:43] VITALS: BP 102/72
[2020-04-03] MEDS: HYDROMORPHONE 1MG/1ML INJ IV PRN ×2 (03:42→08:22)
[2020-04-03 04:00] VITALS: BP 98/62
--- NOTE | 2020-04-03 07:00 | NUR ---
RECEIVED BEDSIDE REPORT. PT IS SLEEPING, NO S/S OF DISTRESS. CALL LIGHT WITHIN REACH AND BED SAFETY IN PLACE
[2020-04-03 08:21] VITALS: BP 102/71
[2020-04-03] MEDS: BUPROPION HCL SR 150 MG TAB PO SCH (08:22)
[2020-04-03] MEDS: FAMOTIDINE 20 MG/2 ML VIAL IV SCH (08:22)
[2020-04-03] MEDS: METOCLOPRAMIDE HCL 10 MG TAB PO SCH (08:22)
[2020-04-03] MEDS: OXCARBAZEPINE 300 MG TAB PO SCH (08:22)
[2020-04-03] MEDS: PREGABALIN 75 MG CAP PO SCH (08:22)
[2020-04-03] MEDS: PANTOPRAZOLE 40 MG 10ML VIAL IV SCH (08:22)
[2020-04-03 08:28] VITALS: BP 102/71
--- NOTE | 2020-04-03 10:15 | NUR ---
DISCUSSED DISCHARGE PAPERWORK WITH PATIENT, QUESTIONS/CONCERNS ADDRESSED. PT STATES THAT HER RIDE WILL BE HERE SOMETIME AFTER 11 AM
[2020-04-03] MEDS ORDERED: ONDANSETRON HCL 4 MG ORAL DISINTEGRATING TAB PO PRN (10:30)
== END 2020-04-03 10:52 | disposition home or self-care (01) ==
LOC: ER 20:36 → ERHOLD 04-01 02:57 → MED/SURG 04-01 20:20
PROVIDERS: ADMIT Internal Medicine; ATTEND Internal Medicine
DX: K29.70 Gastritis, unspecified, without bleeding (principal); K27.9 Peptic ulcer, site unspecified, unspecified as acute or chronic, without hemorrhage or perforation; M79.7 Fibromyalgia; I10 Essential (primary) hypertension; F41.9 Anxiety disorder, unspecified; K21.9 Gastro-esophageal reflux disease without esophagitis; Z88.8 Allergy status to other drugs, medicaments and biological substances; Z11.59 Encounter for screening for other viral diseases
CPT/HCPCS: 36415; 71045; 74177; 76705; 78227; 80053; 80307; 81001; 82550; 82553; 84484; 85025; 87635; 93005; 99284; A9537; C9113 ×4; G0378 ×3; J1170 ×3; J2270; J2405 ×3; J8597 ×3; Q9967

== ENCOUNTER 2020-05-07 18:05 | Emergency (ER) | payer MEDICARE ==
[~2020-05-07] VITALS: Ht 160 cm; Wt 86.2 kg
[~2020-05-07 18:05] MED LIST changes: +BUPROPION HCL100 MG PO; +DEXILANT60 MG PO; +LYRICA75 MG PO; +METOCLOPRAMIDE10 MG PO; +PEPCID20 MG PO
[2020-05-07] MEDS ORDERED: KETOROLAC TROMETHAMINE 30 MG/ML VIAL IV STA (19:43)
--- NOTE | 2020-05-07 19:45 | Emergency Department Note ---
History of Present Illnes History of Present Illness Chief Complaint: Genitourinary History of Present Illness This is a 44 year old female with abrupt onset of RLQ pain since noon today. Patient without f/c/n/v. Prior h/o of kidney stone. ruth works for me. Historian: Patient Arrival Mode: Car Onset (how long ago): hour(s) Location: RLQ Radiation: Reports abdomen (RLQ) Onset quality: sudden Duration (how long): hour(s) Progression: worsening Chronicity: recurrent Relieving factors: rest Exacerbating factors: movement Associated symptoms: Denies denies other symptoms, Denies confusion, Denies chest pain, Denies cough, Denies diaphoresis, Denies fever/chills, Denies h eadaches, Denies loss of appetite, Denies malaise, Denies nausea/vomiting, Denies rash, Denies seizure, Denies shortness of breath, Denies syncope, Denies weakness, Denies other Treatments prior to arrival: none Previous service: tests performed, one or more referrals Past Medical/Family History Physician Review I have reviewed the patient's past medical and family history. Any updates have been documented here. Past Medical History Recent Fever: No Clinical Suspicion of Infectio: No New/Unexplained Change in Ment: No Past Medical History: Hypothyroidism, Kidney Stones, Anxiety, Depression, Other Mental Illness, GERD Other Medical History: BIPOLAR FIBROMYALGIA STOMACH ULCERS Other Surgery: LITHROTRIPSY EGD Social History Smoking Cessation: Never Smoker Alcohol Use: None Any Illegal Drug Use: No Other Last Tetanus: DENIES Review of Systems Review of Systems Constitutional: Reports no symptoms EENTM: Reports no symptoms Cardiovascular: Reports no symptoms Respiratory: Reports no symptoms Gastrointestinal: Reports abdominal pain Genitourinary: Reports no symptoms Musculoskeletal: Reports no symptoms Integumentary: Reports no symptoms Neurological: Reports no symptoms Psychological: Reports no symptoms Endocrine: Reports no symptoms Hematological/Lymphatic: Reports no symptoms Physical Exam Related Data Allergies: Coded Allergies: meperidine HCl (Verified Allergy, Mild, Itching, 09/03/19) Triage Vital Signs Vital Signs Date Time Temp Pulse Resp B/P (MAP) Pulse Ox O2 Delivery O2 Flow Rate FiO2 05/07/20 18:25 99.6 98 18 119/75 99 Room Air Vital signs reviewed: Yes Physical Exam CONSTITUTIONAL Constitutional: Present well-developed, Present well-nourished HENT HENT: Present normocephalic, Present atraumatic, Present oropharynx clear/moist, Present nose normal HENT L/R: Present left ext ear normal, Present right ext ear normal EYES Eyes: Reports PERRL, Reports conjunctivae normal NECK Neck: Present ROM normal PULMONARY Pulmonary: Present effort normal, Present breath sounds normal CARDIOVASCULAR Cardiovascular: Present regular rhythm, Present heart sounds normal, Present capillary refill normal, Present normal rate RGASTROINTESTINAL Abdominal: Present soft, Present tender GENITOURINARY Genitourinary: Present exam deferred SKIN Skin: Present warm, Present dry MUSCULOSKELETAL Musculoskeletal: Present ROM normal NEUROLOGICAL Neurological: Present alert, Present oriented x 3, Present no gross motor or s ensory deficits PSYCHOLOGICAL Psychological: Present mood/affect normal, Present judgement normal Results Laboratory Lab results reviewed: Yes Laboratory comments Laboratory Tests Test 05/07/20 19:49 05/07/20 18:30 White Blood Count 12.13 x10e3/uL (4.8-10.8) Red Blood Count 4.65 x10e6/uL (3.6-5.1) Hemoglobin 14.1 g/dL (12.0-16.0) Hematocrit 44.6 % (34.2-44.1) Mean Corpuscular Volume 95.9 fL (81-99) Mean Corpuscular Hemoglobin 30.3 pg (28-32) Mean Corpuscular Hemoglobin Concent 31.6 g/dL (31-35) Red Cell Distribution Width 15.9 % (11.7-14.4) Platelet Count 379 x10e3/uL (140-360) Neutrophils (%) (Auto) 71.0 % (38.7-80.0) Lymphocytes (%) (Auto) 19.6 % (18.0-39.1) Monocytes (%) (Auto) 7.7 % (4.4-11.3) Eosinophils (%) (Auto) 0.6 % (0.0-6.0) Basophils (%) (Auto) 0.5 % (0.0-1.0) Neutrophils # (Auto) 8.6 (2.1-6.9) Lymphocytes # (Auto) 2.4 (1.0-3.2) Monocytes # (Auto) 0.9 (0.2-0.8) Eosinophils # (Auto) 0.1 (0.0-0.4) Basophils # (Auto) 0.1 (0.0-0.1) Absolute Immature Granulocyte (auto 0.07 x10e3/uL (0-0.1) Urine Color Yellow (YELLOW) Urine Clarity Hazy (CLEAR) Urine pH 5.5 (5 - 7) Urine Specific [place] 1.015 (1.010-1.025) Urine Protein Negative (NEGATIVE) Urine Glucose (UA) Negative (NEGATIVE) Urine Ketones Negative (NEGATIVE) Urine Blood Small (NEGATIVE) Urine Nitrite Negative (NEGATIVE) Urine Bilirubin Negative (NEGATIVE) Urine Urobilinogen 0.2 mg/dL (0.2 - 1) Urine Leukocyte Esterase Negative (NEGATIVE) Urine RBC 11-20 /HPF (0-5) Urine WBC 6-10 /HPF (0-5) Urine Epithelial Cells Few /LPF (NONE) Urine Bacteria Moderate /HPF (NONE) Urine Test Negative (NEGATIVE) Urine Opiates Screen Negative (NEGATIVE) Urine Methadone Screen Negative (NEGATIVE) Urine Barbiturates Screen Negative (NEGATIVE) Urine Phencyclidine Screen Negative (NEGATIVE) Urine Amphetamines Screen Negative (NEGATIVE) Urine Methamphetamines Screen Negative (NEGATIVE) Urine Benzodiazepines Screen Negative (NEGATIVE) Urine Cocaine Screen Negative (NEGATIVE) Urine Cannabinoids Screen Negative (NEGATIVE) Imaging Imaging results reviewed: Yes Impressions [place] [address] Patient Name: JESUS SPENCE MR #: [id number] : 1975 Age/Sex: 44/F Req #: [id number] Adm Physician: Ordered by: PATY SINGER DO Report #: [id number] Location: ER Room/Bed: Procedure: CT/CT ABDOMEN/PELVIS WO Exam Date: 05/07/20 Exam Time: 2045 REPORT STATUS: Signed EXAM: CT Abdomen and Pelvis WITHOUT contrast INDICATION: ^RIGHT FLANK PAIN ^[id number] ^2045 ^N COMPARISON: CT abdomen pelvis 04/01/2020 TECHNIQUE: Abdomen and pelvis were scanned utilizing a multidetector helical scanner from the lung base to the pubic symphysis without administration of IV contrast. Absence of intravenous contrast decreases sensitivity for detection of focal lesions and vascular pathology. Coronal and sagittal reformations were obtained. Stone protocol is performed. IV CONTRAST: None ORAL CONTRAST: None COMPLICATIONS: None RADIATION DOSE: Total DLP: 306 mGy*cm Estimated effective dose: (DLP x 0.015 x size factor) mSv CTDIvol has been reviewed. It is below the limits set by the Radiation Protocol Committee (RPC). Dose modulation, iterative reconstruction, and/or weight based adjustment of the mA/kV was utilized to reduce the radiation dose to as low as reasonably achievable. FINDINGS: LINES and TUBES: None. LOWER THORAX: Unremarkable HEPATOBILIARY: No focal hepatic lesions. No biliary ductal dilation. GALLBLADDER: No radio-opaque stones or sludge. No wall thickening. SPLEEN: No splenomegaly. PANCREAS: No focal masses or ductal dilatation. ADRENALS: No adrenal nodules KIDNEYS/URETERS: Right renal edema with moderate right hydronephrosis. 5 mm stone within the urinary bladder just distal to the UVJ. Mild right perinephric inflammation. Few subcentimeter bilateral intrarenal calculi, largest 5 mm in the left kidney. No left hydronephrosis. GI TRACT: No abnormal distention, wall thickening, or evidence of bowel obstruction. Surgical clips near the gastroesophageal junction. Appendix is normal. PELVIC ORGANS/BLADDER: Unremarkable. LYMPH NODES: No lymphadenopathy. VESSELS: Unremarkable. PERITONEUM / RETROPERITONEUM: No free air or fluid. BONES: Unremarkable. SOFT TISSUES: Tiny fat-containing ventral hernia. IMPRESSION: 1. 5 mm stone within the urinary bladder recently passed from the right renal collecting system. Residual right renal edema and moderate right hydronephrosis. 2. Bilateral subcentimeter nonobstructing intrarenal calculi. Signed by: Flower Elliott MD on 05/07/2020 9:00 PM Dictated By: FLOWER ELLIOTT MD 99 Transcribed By: TAMARA on 07/05/20 2100 COPY TO: PATY SINGER DO~ Assessment & Plan Medical Decision Making MDM 44 yof with abdominal pain. CBC, CMP, UA and CTS ordered to r/o appendicitis, diverticulitis, UTI, kidney stone, perforated viscus, obstruction, ischemia, and biliary pathology Assessment & Plan Final Impression: (1) Kidney stone on right side (2) UTI (urinary tract infection) Last Vital Signs Date Time Temp Pulse Resp B/P (MAP) Pulse Ox O2 Delivery O2 Flow Rate FiO2 05/07/20 19:43 99.3 89 18 105/87 100 05/07/20 18:25 Room Air Home Meds Reported Medications Bupropion Hcl (BUPROPION HCL) 100 Mg Tablet, 150 MG PO BID, #30 TAB 04/01/20 Metoclopramide Hcl (METOCLOPRAMIDE HCL) 10 Mg Tablet, 10 MG PO TIDWM, TAB 04/01/20 Pregabalin (LYRICA) 75 Mg Cap, 75 MG PO BID, CAP 04/01/20 Famotidine (PEPCID) 20 Mg Tablet, 40 MG PO BID PRN for GI UPSET, #60 TAB 04/01/20 Dexlansoprazole (DEXILANT) 60 Mg Cap., 60 MG PO BID THERAPEUTIC INTERCHANGE WITH PROTONIX PER [facility] 04/01/20 Zolmitriptan (Zomig) 5 Mg Tablet, 5 MG PO Q2-3H PRN for MIGRAINE MAX DOSE 10 MG/DAY 08/13/12 Amitriptyline Hcl (Elavil) 25 Mg Tab, 300 MG PO QHS 05/13/11 Ziprasidone Hcl (Geodon) 80 Mg Capsule, 80 MG PO QHS 05/13/11 Paroxetine Hcl (Paxil) 40 Mg Tablet, 40 MG PO QHS 05/13/11 Oxcarbazepine (Trileptal) 300 Mg Tablet, 300 MG PO BID 05/13/11 Physician Attestation Provider Attestation According to [facility] website, OD risk score suspicious PATY SINGER DO May 07, 2020 19:45
[2020-05-07 20:11] LABS: BILIRUBIN,URINE NEGATIVE (NEGATIVE); CLARITY,URINE HAZY (CLEAR); COLOR,URINE YELLOW (YELLOW); KETONES,URINE NEGATIVE (NEGATIVE); LEUKOCYTE ESTERASE ,URINE NEGATIVE (NEGATIVE); NITRITE,URINE NEGATIVE (NEGATIVE); PROTEIN,URINE DIPSTICK NEGATIVE (NEGATIVE); URINE UROBILINOGEN 0.2 mg/dL (0.2 - 1)
[2020-05-07 20:12] LABS: PREGNANCY TEST, URINE NEGATIVE (NEGATIVE)
[2020-05-07 20:14] LABS: BACTERIA,URINE MODERATE /HPF; EPITHELIAL CELLS,URINE FEW /LPF
[2020-05-07 20:15] LABS: AMPHETAMINES SCREEN,URINE NEGATIVE (NEGATIVE); BENZODIAZEPINES SCREEN,URINE NEGATIVE (NEGATIVE); PHENCYCLIDINE SCREEN,URINE NEGATIVE (NEGATIVE)
[2020-05-07 20:54] LABS: BASOPHILS # (AUTO) 0.1 (0.0-0.1); BASOPHILS % 0.5 % (0.0-1.0); EOSINOPHILS # (AUTO) 0.1 (0.0-0.4); EOSINOPHILS % 0.6 % (0.0-6.0); HEMATOCRIT 44.6 % (34.2-44.1); HEMOGLOBIN 14.1 g/dL (12.0-16.0); LYMPHOCYTES # (AUTO) 2.4 (1.0-3.2); LYMPHOCYTES % 19.6 % (18.0-39.1); MEAN CORPUSCULAR HEMOGLOBIN 30.3 pg (28-32); MEAN CORPUSCULAR HGB CONC 31.6 g/dL (31-35); MEAN CORPUSCULAR VOLUME 95.9 fL (81-99); MONOCYTES # (AUTO) 0.9 (0.2-0.8); MONOCYTES % 7.7 % (4.4-11.3); NEUTROPHILS # (AUTO) 8.6 (2.1-6.9); PLATELET COUNT 379 x10e3/uL (140-360); RED BLOOD COUNT 4.65 x10e6/uL (3.6-5.1); RED CELL DISTRIBUTION WIDTH 15.9 % (11.7-14.4)
--- NOTE | 2020-05-07 21:03 | Diagnostic Imaging Report ---
EXAM: CT Abdomen and Pelvis WITHOUT contrast INDICATION: ^RIGHT FLANK PAIN ^[id number] ^2045 ^N COMPARISON: CT abdomen pelvis 04/01/2020 TECHNIQUE: Abdomen and pelvis were scanned utilizing a multidetector helical scanner from the lung base to the pubic symphysis without administration of IV contrast. Absence of intravenous contrast decreases sensitivity for detection of focal lesions and vascular pathology. Coronal and sagittal reformations were obtained. Stone protocol is performed. IV CONTRAST: None ORAL CONTRAST: None COMPLICATIONS: None RADIATION DOSE: Total DLP: 306 mGy*cm Estimated effective dose: (DLP x 0.015 x size factor) mSv CTDIvol has been reviewed. It is below the limits set by the Radiation Protocol Committee (RPC). Dose modulation, iterative reconstruction, and/or weight based adjustment of the mA/kV was utilized to reduce the radiation dose to as low as reasonably achievable. FINDINGS: LINES and TUBES: None. LOWER THORAX: Unremarkable HEPATOBILIARY: No focal hepatic lesions. No biliary ductal dilation. GALLBLADDER: No radio-opaque stones or sludge. No wall thickening. SPLEEN: No splenomegaly. PANCREAS: No focal masses or ductal dilatation. ADRENALS: No adrenal nodules KIDNEYS/URETERS: Right renal edema with moderate right hydronephrosis. 5 mm stone within the urinary bladder just distal to the UVJ. Mild right perinephric inflammation. Few subcentimeter bilateral intrarenal calculi, largest 5 mm in the left kidney. No left hydronephrosis. GI TRACT: No abnormal distention, wall thickening, or evidence of bowel obstruction. Surgical clips near the gastroesophageal junction. Appendix is normal. PELVIC ORGANS/BLADDER: Unremarkable. LYMPH NODES: No lymphadenopathy. VESSELS: Unremarkable. PERITONEUM / RETROPERITONEUM: No free air or fluid. BONES: Unremarkable. SOFT TISSUES: Tiny fat-containing ventral hernia. IMPRESSION: 1. 5 mm stone within the urinary bladder recently passed from the right renal collecting system. Residual right renal edema and moderate right hydronephrosis. 2. Bilateral subcentimeter nonobstructing intrarenal calculi. Signed by: Margarito Marquez MD on 05/07/2020 9:00 PM
[2020-05-07 21:16] LABS: ALANINE AMINOTRANSFERASE 21 IU/L (0-55); ALBUMIN 3.8 g/dL (3.5-5.0); ALKALINE PHOSPHATASE 83 IU/L (40-150); ANION GAP 14.3 mmol/L (8-16); BLOOD UREA NITROGEN 15 mg/dL (7-26); BUN/CREATININE RATIO 15 (6-25); CARBON DIOXIDE 27 mmol/L (22-29); CHLORIDE 103 mmol/L (98-107); CREATININE, SERUM 0.99 mg/dL (0.57-1.11); EST GLOMERULAR FILTRATION RATE > 60 ML/MIN (60-); GLUCOSE 86 mg/dL (74-118); POTASSIUM 3.3 mmol/L (3.5-5.1); SODIUM 141 mmol/L (136-145)
== END 2020-05-07 22:13 | disposition home or self-care (01) ==
LOC: ER 19:08
DX: N20.0 Calculus of kidney (principal); N39.0 Urinary tract infection, site not specified; R10.31 Right lower quadrant pain; M79.7 Fibromyalgia; F31.9 Bipolar disorder, unspecified; F41.9 Anxiety disorder, unspecified; E03.9 Hypothyroidism, unspecified; Z87.19 Personal history of other diseases of the digestive system
CPT/HCPCS: 36415; 74176; 80053; 80307; 81001; 81025; 85025; 99284

== ENCOUNTER → 2020-09-06 | Outpatient (CLI) | payer MEDICARE ==
--- NOTE | 2020-09-06 20:12 | Diagnostic Imaging Report ---
Solid-phase gastric emptying study Reason for examination: Gastroparesis The protocol used for this study is based on the Consensus Recommendations for Gastric Scintigraphy by the [place] [employer] and the Society of [employer]. Clinical information: The patient is not diabetic. The patient had a partial gastrectomy about 10 years ago. She is currently on metoclopramide. The patient has been fasting for at least 6 hours prior to this exam. Radiopharmaceutical: Tc-99m sulfur colloid 1 mCi Report: The radiopharmaceutical was added to 1/2 cup egg whites that were then prepared and served with 2 pieces of white bread toasted, 30 grams of jam and 4 ounces of water. The patient took the meal orally without difficulty. Images were obtained of the abdomen in the anterior and posterior projections at 10 minutes post the meal and at 1, 2, 3, and 4 hours. Uptake was determined from the geometric mean of the anterior and posterior counts and the counts were corrected for decay of the radiolabel. The percent gastric retention of the labeled meal at: 1 hour was 97% (normal 30-90%) 2 hours was 93% (normal <60%) 3 hours was 90% (normal <30%) 4 hours was 88% (normal <10%) Review of the images shows that the radiolabeled meal moves very slowly from the fundus of the stomach. When the meal does move to the antrum, it empties from the antrum in a normal pattern. Impression: Markedly prolonged gastric emptying. Findings support the clinical diagnosis of severe gastroparesis. Signed by: Dr. Dorie Mead M.D. on 09/06/2020 8:08 PM
== END ==
LOC: NM 08:21
PROVIDERS: ATTEND Internal Medicine
DX: K31.84 Gastroparesis (principal)
CPT/HCPCS: 78264; A9541

== ENCOUNTER 2022-09-06 17:17 | Emergency (ER) | payer MEDICARE ==
[~2022-09-06] VITALS: Ht 160 cm; Wt 86.2 kg
[2022-09-06] MEDS ORDERED: ANUSOL-HC30 GM RC (18:09)
[2022-09-06] MEDS ORDERED: ANAPROX DS550 MG PO (18:09)
== END 2022-09-06 18:28 | disposition home or self-care (01) ==
LOC: ER 17:35
DX: K62.89 Other specified diseases of anus and rectum (principal); K64.8 Other hemorrhoids; E03.9 Hypothyroidism, unspecified; K21.9 Gastro-esophageal reflux disease without esophagitis; F41.9 Anxiety disorder, unspecified; M79.7 Fibromyalgia; F31.9 Bipolar disorder, unspecified
CPT/HCPCS: 99282

== ENCOUNTER 2023-02-13 08:12 | Observation (INO) | payer MEDICARE ==
[2023-02-12 14:08] LABS: BASOPHILS # (AUTO) 0.1 (0.0-0.1); BASOPHILS % 1.3 % (0.0-1.0); EOSINOPHILS # (AUTO) 0.1 (0.0-0.4); EOSINOPHILS % 1.3 % (0.0-6.0); HEMATOCRIT 28.2 % (34.2-44.1); HEMOGLOBIN 8.1 g/dL (12.0-16.0); LYMPHOCYTES # (AUTO) 1.6 (1.0-3.2); LYMPHOCYTES % 23.7 % (18.0-39.1); MEAN CORPUSCULAR HGB CONC 28.7 g/dL (31-35); MEAN CORPUSCULAR VOLUME 69.6 fL (81-99); MONOCYTES # (AUTO) 0.6 (0.2-0.8); MONOCYTES % 8.7 % (4.4-11.3); NEUTROPHILS # (AUTO) 4.5 (2.1-6.9); NEUTROPHILS % 64.7 % (38.7-80.0); PLATELET COUNT 328 x10e3/uL (140-360); RED BLOOD COUNT 4.05 x10e6/uL (3.6-5.1); RED CELL DISTRIBUTION WIDTH 19.8 % (11.7-14.4)
[2023-02-12 14:32] LABS: ALBUMIN 3.1 g/dL (3.5-5.0); ALBUMIN/GLOBULIN RATIO 0.8 (0.8-2.0); ANION GAP 13.4 mmol/L (8-16); CALCIUM 8.5 mg/dL (8.4-10.2); CREATININE, SERUM 0.8 mg/dL (0.57-1.11); POTASSIUM 3.4 mmol/L (3.5-5.1)
[~2023-02-13] VITALS: Ht 160 cm; Wt 76.7 kg
[~2023-02-13 08:12] MED LIST changes: +ANAPROX DS550 MG PO; +ANUSOL-HC30 GM RC; +FUROSEMIDE40 MG PO; +HYDROCODON-ACE1 EA12 PO; +METHOCARBAMOL750 MG PO; +ONDANSETRON ODT8 MG PO
[2023-02-13] MEDS ORDERED: LACTATED RINGER'S 1,000 ML ONE (08:30)
[2023-02-13] MEDS ORDERED: CEFAZOLIN SODIUM 2 GM ONE (08:30)
[2023-02-13] MEDS ORDERED: SUGAMMADEX SODIUM 200 MG/2 ML VIAL IV ONE (10:28)
[2023-02-13] MEDS ORDERED: BUPIVACAINE HCL 0.5% INJ 30 ML VIAL INJ ONE (10:41)
[2023-02-13] MEDS ORDERED: FENTANYL CITRATE/PF 100MCG/2 ML INJ ONE ×3 (10:42→14:58)
[2023-02-13] MEDS ORDERED: FAMOTIDINE 20 MG/2 ML VIAL IV ONE (10:52)
[2023-02-13] MEDS ORDERED: KETAMINE HCL INJ 50 MG/ML 10 ML VIAL ONE (12:35)
[2023-02-13] MEDS ORDERED: MIDAZOLAM HCL 2 MG/2 ML VIAL ONE (12:35)
[2023-02-13] MEDS ORDERED: PAROXETINE HCL 40 MG PO SCH (12:45)
[2023-02-13] MEDS ORDERED: FAMOTIDINE 20 MG TAB PO PRN (12:45)
[2023-02-13] MEDS ORDERED: METHOCARBAMOL 750 MG TAB PO PRN (12:45)
[2023-02-13] MEDS ORDERED: FUROSEMIDE 40 MG TAB PO PRN (12:45)
[2023-02-13] MEDS ORDERED: ACETAMINOPHEN 325 MG TAB PO PRN (12:45)
[2023-02-13] MEDS ORDERED: ONDANSETRON HCL INJ 2MG/ML 2ML 2 MG/ML VIAL IV PRN (12:45)
[2023-02-13] MEDS ORDERED: ZIPRASIDONE HCL 80 MG PO SCH (12:45)
[2023-02-13] MEDS ORDERED: KETOROLAC TROMETHAMINE 30 MG/ML VIAL ONE (13:23)
[2023-02-13] MEDS ORDERED: PROPOFOL IV EMULSION 10 MG/ML 20 ML VIAL ONE (13:23)
[2023-02-13] MEDS ORDERED: DEXAMETHASONE SOD PHOS INJ 4 MG/ML SDV ONE (13:23)
[2023-02-13] MEDS ORDERED: NEOSTIGMINE 1 MG/ML 10ML VIAL ONE (13:23)
[2023-02-13] MEDS ORDERED: SEVOFLURANE INHAL SOLN 250 ML PEN BTL ONE (13:23)
[2023-02-13] MEDS ORDERED: LIDOCAINE HCL 2% LOCAL INJ 5 ML SDV VIAL INJ ONE (13:23)
[2023-02-13] MEDS ORDERED: GLYCOPYRROLATE INJ 0.2 MG/ML VIAL ONE (13:23)
[2023-02-13] MEDS ORDERED: ONDANSETRON HCL INJ 2MG/ML 2ML 2 MG/ML VIAL ONE (13:23)
[2023-02-13] MEDS ORDERED: POVIDONE IODINE 0.05% 0.05 % ML PO ONE (13:23)
[2023-02-13] MEDS: HYDROCODONE/APAP 5MG-325MG TAB PO PRN (13:47)
[2023-02-13 15:45] VITALS: BP 103/78
[2023-02-13 16:25] VITALS: BP 103/78
[2023-02-13 16:37] VITALS: BP 103/78
[2023-02-13] MEDS ORDERED: OXCARBAZEPINE 300 MG TAB PO SCH (17:00)
[2023-02-13] MEDS: PANTOPRAZOLE SOD 40 MG TABEC PO SCH (17:26)
[2023-02-13] MEDS: ONDANSETRON HCL 4 MG ORAL DISINTEGRATING TAB PO SCH ×2 (17:26→23:02)
[2023-02-13] MEDS: PREGABALIN 75 MG CAP PO SCH ×2 (17:26→20:42)
[2023-02-13] MEDS: SODIUM CHLORIDE 0.9% 1000ML 1,000 ML IV SCH ×2 (17:54→21:43)
[2023-02-13] MEDS: Morphine 4mg INJECTION 4 MG/ML INJ IV PRN ×2 (19:05→23:03)
[2023-02-13] MEDS: ZIPRASIDONE 20 MG CAP PO SCH (20:42)
[2023-02-13] MEDS: PAROXETINE HCL 20 MG TAB PO SCH (20:43)
[2023-02-13] MEDS: OXCARBAZEPINE 300 MG TAB PO SCH (20:43)
[2023-02-13 21:04] VITALS: BP 102/68
[2023-02-13 22:15] VITALS: BP 102/68
[2023-02-14] VITALS (8 sets, daily range): BP systolic 95–114; BP diastolic 51–77
[2023-02-14] MEDS: Morphine 4mg INJECTION 4 MG/ML INJ IV PRN ×2 (02:35→05:37)
[2023-02-14] MEDS: ONDANSETRON HCL 4 MG ORAL DISINTEGRATING TAB PO SCH ×3 (05:36→17:18)
[2023-02-14] MEDS: OXCARBAZEPINE 300 MG TAB PO SCH ×2 (08:40→20:52)
[2023-02-14] MEDS: PREGABALIN 75 MG CAP PO SCH ×3 (08:41→20:51)
[2023-02-14] MEDS: PANTOPRAZOLE SOD 40 MG TABEC PO SCH ×2 (08:41→17:18)
[2023-02-14] MEDS: LORAZEPAM INJ 2 MG/ML VIAL IV PRN ×2 (08:42→22:34)
[2023-02-14] MEDS: HYDROCODONE/APAP 5MG-325MG TAB PO PRN ×2 (08:42→19:05)
[2023-02-14] MEDS: HYDROMORPHONE 1MG/1ML INJ IV PRN ×3 (13:03→22:34)
[2023-02-14] MEDS: SODIUM CHLORIDE 0.9% 1000ML 1,000 ML IV SCH (13:03)
[2023-02-14] MEDS: ZIPRASIDONE 20 MG CAP PO SCH (20:52)
[2023-02-14] MEDS: PAROXETINE HCL 20 MG TAB PO SCH (20:52)
[2023-02-14] MEDS ORDERED: AMITRIPTYLINE HCL 25 MG TAB PO SCH (21:00)
[2023-02-15 01:51] VITALS: BP 118/64
[2023-02-15] MEDS: HYDROCODONE/APAP 5MG-325MG TAB PO PRN (01:57)
[2023-02-15 05:07] VITALS: BP 98/64
[2023-02-15] MEDS: SODIUM CHLORIDE 0.9% 1000ML 1,000 ML IV SCH (06:26)
[2023-02-15] MEDS: ONDANSETRON HCL 4 MG ORAL DISINTEGRATING TAB PO SCH ×3 (06:26→11:34)
[2023-02-15] MEDS ORDERED: HYDROCODON-ACE1 EA12 PO (06:50)
[2023-02-15 08:00] VITALS: BP 98/64
[2023-02-15] MEDS: PANTOPRAZOLE SOD 40 MG TABEC PO SCH (08:18)
[2023-02-15] MEDS: OXCARBAZEPINE 300 MG TAB PO SCH (08:19)
[2023-02-15] MEDS: PREGABALIN 75 MG CAP PO SCH (08:19)
[2023-02-15 09:15] VITALS: BP 108/71
[2023-02-15] MEDS: HYDROMORPHONE 1MG/1ML INJ IV PRN (11:34)
[2023-02-15 12:01] VITALS: BP 101/78
== END 2023-02-15 13:32 | disposition home or self-care (01) ==
LOC: OR 08:12 → PACU V 12:54 → MED/SURG2 15:46
PROVIDERS: ADMIT Surgery; ATTEND Surgery
DX: K43.2 Incisional hernia without obstruction or gangrene (principal); F31.9 Bipolar disorder, unspecified; F41.9 Anxiety disorder, unspecified; M79.7 Fibromyalgia; K21.9 Gastro-esophageal reflux disease without esophagitis; D64.9 Anemia, unspecified; F60.3 Borderline personality disorder; G43.909 Migraine, unspecified, not intractable, without status migrainosus; Z01.812 Encounter for preprocedural laboratory examination; Z20.822 Contact with and (suspected) exposure to COVID-19; Z79.899 Other long term (current) drug therapy; Z87.442 Personal history of urinary calculi; Z82.49 Family history of ischemic heart disease and other diseases of the circulatory system
CPT/HCPCS: 0223U; 36415; 49593; 80053; 84702; 85025; 86850; 86900; 94799 ×3; C1781; G0378 ×3; J1100; J1170 ×2; J1885; J2001; J2060; J2250; J2270 ×2; J2405 ×2; J2704; J2710; J3010; J7030 ×2; J7121; Q0162 ×3; S0164 ×3

== ENCOUNTER 2023-09-06 21:06 | Emergency (ER) | payer MEDICARE ==
[~2023-09-06] VITALS: Ht 160 cm; Wt 93.9 kg
[2023-09-06] MEDS ORDERED: SODIUM CHLORIDE 0.9% 1000ML 1,000 ML IV ONE (21:30)
[2023-09-06 21:42] LABS: BASOPHILS # (AUTO) 0.1 (0.0-0.1); BASOPHILS % 0.6 % (0.0-1.0); EOSINOPHILS # (AUTO) 0.1 (0.0-0.4); EOSINOPHILS % 0.5 % (0.0-6.0); HEMATOCRIT 44.8 % (34.2-44.1); HEMOGLOBIN 15.1 g/dL (12.0-16.0); LYMPHOCYTES # (AUTO) 1.9 (1.0-3.2); LYMPHOCYTES % 17.6 % (18.0-39.1); MEAN CORPUSCULAR HEMOGLOBIN 30.2 pg (28-32); MEAN CORPUSCULAR HGB CONC 33.7 g/dL (31-35); MEAN CORPUSCULAR VOLUME 89.6 fL (81-99); MONOCYTES # (AUTO) 0.8 (0.2-0.8); MONOCYTES % 7.7 % (4.4-11.3); NEUTROPHILS # (AUTO) 7.8 (2.1-6.9); NEUTROPHILS % 73.2 % (38.7-80.0); PLATELET COUNT 324 x10e3/uL (140-360); RED CELL DISTRIBUTION WIDTH 15.5 % (11.7-14.4); WHITE BLOOD COUNT 10.67 x10e3/uL (4.8-10.8)
[2023-09-06 22:00] LABS: CALCIUM 9.3 mg/dL (8.4-10.2); CREATININE, SERUM 0.84 mg/dL (0.57-1.11)
[2023-09-06] MEDS ORDERED: LORAZEPAM 1 MG TAB PO ONE (22:45)
[2023-09-06 23:53] LABS: AMPHETAMINES SCREEN,URINE NEGATIVE (NEGATIVE); BENZODIAZEPINES SCREEN,URINE NEGATIVE (NEGATIVE); CLARITY,URINE HAZY (CLEAR); COLOR,URINE YELLOW (YELLOW); KETONES,URINE NEGATIVE (NEGATIVE); LEUKOCYTE ESTERASE ,URINE TRACE (NEGATIVE); NITRITE,URINE NEGATIVE (NEGATIVE); PHENCYCLIDINE SCREEN,URINE NEGATIVE (NEGATIVE); PROTEIN,URINE DIPSTICK NEGATIVE (NEGATIVE); URINE UROBILINOGEN 0.2 mg/dL (0.2 - 1)
[2023-09-06 23:56] LABS: AMORPHOUS SEDIMENT,URINE MODERATE (FEW); BACTERIA,URINE MODERATE /HPF; EPITHELIAL CELLS,URINE MANY /LPF; RBC,URINE 0-5 /HPF (0-5); WBC,URINE (MAN) 0-5 /HPF (0-5)
[2023-09-07 00:58] VITALS: BP 129/76; O2SAT 97
== END 2023-09-07 00:35 | disposition home or self-care (01) ==
LOC: ER 21:10
DX: R50.9 Fever, unspecified (principal); F41.9 Anxiety disorder, unspecified; R42 Dizziness and giddiness; M79.7 Fibromyalgia; F31.9 Bipolar disorder, unspecified
CPT/HCPCS: 36415; 70450; 71045; 80053; 80307; 81001; 84484; 85025; 93005; 99284; J7030

== ENCOUNTER 2024-05-06 08:52 | Emergency (ER) | payer MEDICARE ==
[~2024-05-06] VITALS: Ht 160 cm; Wt 90.7 kg
[~2024-05-06 08:52] MED LIST changes: +ATIVAN0.5 MG PO; +LEVOTHYROXINE50 MCG PO; +PHENTERMINE H37.5 MG PO; +PROTONIX20 MG PO
[2024-05-06 08:58] VITALS: TEMP 98.4
[2024-05-06 11:40] VITALS: PULSE 76; RESP 15; O2SAT 100
[2024-05-18] MEDS ORDERED: TOPIRAMATE100 MG PO (06:38)
== END 2024-05-06 15:42 | disposition home or self-care (01) ==
LOC: ER 08:59
DX: S52.592A Other fractures of lower end of left radius, initial encounter for closed fracture (principal); W01.0XXA Fall on same level from slipping, tripping and stumbling without subsequent striking against object, initial encounter; M79.7 Fibromyalgia; Z87.891 Personal history of nicotine dependence; Z88.5 Allergy status to narcotic agent; Z79.891 Long term (current) use of opiate analgesic
CPT/HCPCS: 70450; 72125; 99285

== ENCOUNTER → 2024-05-18 | Day surgery (SDC) | payer MEDICARE ==
[~2024-05-18] MED LIST changes: +DEXAMETHASONE SOD PHOS INJ 4 MG/ML SDV ONE; +DEXMEDETOMIDINE HCL 200 MCG/2 ML VIAL ONE; +EPINEPHRINE HCL 1:1000 1ML 1 MG/ML AMP ONE; +FENTANYL CITRATE/PF 100MCG/2 ML INJ ONE; +LIDOCAINE HCL 2% LOCAL INJ 5 ML SDV VIAL INJ ONE; +MIDAZOLAM HCL 2 MG/2 ML VIAL ONE; +ONDANSETRON HCL INJ 2MG/ML 2ML 2 MG/ML VIAL ONE; +PROPOFOL IV EMULSION 10 MG/ML 20 ML VIAL ONE; +ROPIVACAINE 0.5% 5 MG/ML 30 ML SDV ONE; +TOPIRAMATE100 MG PO
[2024-05-18] MEDS: LACTATED RINGER'S 1,000 ML ONE (08:43)
[2024-05-18 16:05] VITALS: BP 137/90; PULSE 75; RESP 18; O2SAT 98
== END | disposition home or self-care (01) ==
LOC: OR 07:35
PROVIDERS: ATTEND Specialist
DX: S52.572A Other intraarticular fracture of lower end of left radius, initial encounter for closed fracture (principal); G89.4 Chronic pain syndrome; E66.01 Morbid (severe) obesity due to excess calories; K21.9 Gastro-esophageal reflux disease without esophagitis; F41.9 Anxiety disorder, unspecified; F32.A Depression, unspecified; W01.0XXA Fall on same level from slipping, tripping and stumbling without subsequent striking against object, initial encounter; Z88.6 Allergy status to analgesic agent; Z79.899 Other long term (current) drug therapy; Z68.31 Body mass index [BMI] 31.0-31.9, adult; Z87.891 Personal history of nicotine dependence
CPT/HCPCS: 25608; C1713 ×3; J0171; J0690; J1100; J2001; J2250; J2405; J2704; J2795; J3010; J7121; 76000

== ENCOUNTER 2024-11-05 07:48 | Emergency (ER) | payer MEDICARE ==
[~2024-11-05] VITALS: Ht 160 cm; Wt 81.6 kg
[~2024-11-05 07:48] MED LIST changes: -DEXAMETHASONE SOD PHOS INJ 4 MG/ML SDV ONE; -DEXMEDETOMIDINE HCL 200 MCG/2 ML VIAL ONE; -EPINEPHRINE HCL 1:1000 1ML 1 MG/ML AMP ONE; -FENTANYL CITRATE/PF 100MCG/2 ML INJ ONE; -LIDOCAINE HCL 2% LOCAL INJ 5 ML SDV VIAL INJ ONE; -MIDAZOLAM HCL 2 MG/2 ML VIAL ONE; -ONDANSETRON HCL INJ 2MG/ML 2ML 2 MG/ML VIAL ONE; -PROPOFOL IV EMULSION 10 MG/ML 20 ML VIAL ONE; -ROPIVACAINE 0.5% 5 MG/ML 30 ML SDV ONE
[2024-11-05 07:54] VITALS: TEMP 98.6
[2024-11-05] MEDS: SODIUM CHLORIDE 0.9% 1000ML 1,000 ML IV ONE (08:44)
[2024-11-05] MEDS: METOCLOPRAMIDE HCL 10 MG/2ML VIAL IV ONE (08:44)
[2024-11-05] MEDS: DIPHENHYDRAMINE HCL INJ 50 MG/ML VIAL IV ONE (08:44)
[2024-11-05 08:48] LABS: BASOPHILS # (AUTO) 0.1 (0.0-0.1); EOSINOPHILS # (AUTO) 0.2 (0.0-0.4); EOSINOPHILS % 2.1 % (0.0-6.0); HEMATOCRIT 40.1 % (34.2-44.1); HEMOGLOBIN 12.6 g/dL (12.0-16.0); LYMPHOCYTES % 25.4 % (18.0-39.1); MEAN CORPUSCULAR HEMOGLOBIN 29.4 pg (28-32); MEAN CORPUSCULAR HGB CONC 31.4 g/dL (31-35); MEAN CORPUSCULAR VOLUME 93.7 fL (81-99); MONOCYTES # (AUTO) 0.7 (0.2-0.8); MONOCYTES % 8.9 % (4.4-11.3); PLATELET COUNT 430 x10e3/uL (140-360); RED BLOOD COUNT 4.28 x10e6/uL (3.6-5.1); RED CELL DISTRIBUTION WIDTH 14.3 % (11.7-14.4); WHITE BLOOD COUNT 7.99 x10e3/uL (4.8-10.8)
[2024-11-05 08:49] VITALS: PULSE 92; RESP 13
[2024-11-05 09:15] LABS: ALBUMIN 3.6 g/dL (3.5-5.0); ALBUMIN/GLOBULIN RATIO 1.1 (0.8-2.0); BILIRUBIN,TOTAL 0.1 mg/dL (0.2-1.2); CREATININE, SERUM 0.83 mg/dL (0.57-1.11); TOTAL PROTEIN 6.9 g/dL (6.5-8.1)
[2024-11-05 09:28] LABS: ANION GAP 19.7 mmol/L (8-16)
[2024-11-05] MEDS: KCL 20 MEQ PACKET/ ORAL SOLN PO STA (09:58)
[2024-11-05] MEDS: ONDANSETRON HCL INJ 2MG/ML 2ML 2 MG/ML VIAL IV STA (10:17)
[2024-11-05 10:26] VITALS: BP 146/98; PULSE 97; RESP 18; TEMP 98.2; O2SAT 95
== END 2024-11-05 10:25 | disposition home or self-care (01) ==
LOC: ER 07:53
DX: M25.532 Pain in left wrist (principal); E87.6 Hypokalemia; R42 Dizziness and giddiness; M79.7 Fibromyalgia; F41.9 Anxiety disorder, unspecified; F32.A Depression, unspecified; F60.3 Borderline personality disorder; Z98.84 Bariatric surgery status
CPT/HCPCS: 36415; 70450; 73110; 80053; 85025; 99284; J1200; J2405; J2765; J7030

== ENCOUNTER 2024-11-05 18:10 | Emergency (ER) | payer MEDICARE ==
[~2024-11-05] VITALS: Ht 160 cm; Wt 81.6 kg
[2024-11-05 18:16] VITALS: PULSE 97; RESP 15; TEMP 98.4
[2024-11-05] MEDS: HALOPERIDOL LACTATE 5 MG/ML VIAL IV ONE (21:18)
[2024-11-05 21:46] LABS: ANION GAP 16.1 mmol/L (8-16); CREATININE, SERUM 0.76 mg/dL (0.57-1.11)
[2024-11-05 21:47] LABS: POTASSIUM 3.1 mmol/L (3.5-5.1)
[2024-11-05] MEDS: POTASSIUM CHLORIDE 20 MEQ TAB CR PO STA (23:06)
[2024-11-05 23:35] VITALS: BP 119/62; PULSE 74; RESP 18; TEMP 98.6; O2SAT 98
== END 2024-11-05 23:36 | disposition home or self-care (01) ==
LOC: ER 18:28
DX: E87.6 Hypokalemia (principal); R11.0 Nausea; Z98.84 Bariatric surgery status
CPT/HCPCS: 36415; 80048; 99284; J1630; J2470

== ENCOUNTER 2025-03-18 17:23 | Inpatient (IN) | payer MEDICARE ==
[~2025-03-18] VITALS: Ht 165.1 cm; Wt 78.5 kg
[~2025-03-18 17:23] MED LIST changes: +ABILIFY5 MG PO; +ATIVAN1 MG PO; +TRINTELLIX5 MG
[2025-03-18 17:26] VITALS: TEMP 98.5
[2025-03-18 21:04] LABS: CLARITY,URINE TURBID (CLEAR); COLOR,URINE BROWN (YELLOW); GLUCOSE, URINE NEGATIVE (NEGATIVE); KETONES,URINE TRACE (NEGATIVE); LEUKOCYTE ESTERASE ,URINE TRACE (NEGATIVE); NITRITE,URINE NEGATIVE (NEGATIVE); PH,URINE 6 (5 - 7); PROTEIN,URINE DIPSTICK >=300 (NEGATIVE); URINE UROBILINOGEN 0.2 mg/dL (0.2 - 1)
[2025-03-18] MEDS: ONDANSETRON HCL INJ 2MG/ML 2ML 2 MG/ML VIAL IV STA (21:04)
[2025-03-18] MEDS: Morphine 4mg INJECTION 4 MG/ML INJ IV ONE (21:04)
[2025-03-18 21:05] LABS: BACTERIA,URINE RARE /HPF; BILIRUBIN,URINE NEGATIVE (NEGATIVE); EPITHELIAL CELLS,URINE RARE /LPF; RBC,URINE >50 /HPF (0-5)
[2025-03-18 21:18] LABS: BASOPHILS % 0.7 % (0.0-1.0); EOSINOPHILS # (AUTO) 0.1 (0.0-0.4); EOSINOPHILS % 1.2 % (0.0-6.0); HEMATOCRIT 36.7 % (34.2-44.1); LYMPHOCYTES # (AUTO) 1.9 (1.0-3.2); LYMPHOCYTES % 32.7 % (18.0-39.1); MEAN CORPUSCULAR HEMOGLOBIN 28.7 pg (28-32); MEAN CORPUSCULAR HGB CONC 32.7 g/dL (31-35); MEAN CORPUSCULAR VOLUME 87.8 fL (81-99); MONOCYTES # (AUTO) 0.3 (0.2-0.8); MONOCYTES % 5.6 % (4.4-11.3); NEUTROPHILS # (AUTO) 3.5 (2.1-6.9); NEUTROPHILS % 59.3 % (38.7-80.0); PLATELET COUNT 385 x10e3/uL (140-360); RED BLOOD COUNT 4.18 x10e6/uL (3.6-5.1); RED CELL DISTRIBUTION WIDTH 15.9 % (11.7-14.4); WHITE BLOOD COUNT 5.94 x10e3/uL (4.8-10.8)
[2025-03-18 21:48] LABS: ALBUMIN 3.3 g/dL (3.5-5.0); ALBUMIN/GLOBULIN RATIO 0.9 (0.8-2.0); ANION GAP 17.1 mmol/L (8-16); BILIRUBIN,TOTAL 0.2 mg/dL (0.2-1.2); CALCIUM 8.7 mg/dL (8.4-10.2); CREATININE, SERUM 0.67 mg/dL (0.57-1.11); POTASSIUM 4.1 mmol/L (3.5-5.1); TOTAL PROTEIN 6.9 g/dL (6.5-8.1)
[2025-03-19] VITALS (15 sets, daily range): BP systolic 96–134; BP diastolic 56–86; PULSE 73–112; RESP 16–20; TEMP 98.2–98.6; O2SAT 94–100
[2025-03-19] MEDS: SODIUM CHLORIDE 0.9% 1000ML 1,000 ML IV ONE (03:07)
[2025-03-19] MEDS: ONDANSETRON HCL INJ 2MG/ML 2ML 2 MG/ML VIAL IV PRN (03:07)
[2025-03-19] MEDS: Morphine 4mg INJECTION 4 MG/ML INJ IV PRN (03:08)
[2025-03-19] MEDS ORDERED: LORAZEPAM 1 MG TAB PO SCH (04:15)
[2025-03-19] MEDS: LORAZEPAM 1 MG TAB PO PRN (05:13)
[2025-03-19] MEDS: PREGABALIN 50 MG CAP PO SCH (08:21)
[2025-03-19] MEDS: TOPIRAMATE 100 MG TAB PO SCH (08:21)
[2025-03-19] MEDS: LEVOTHYROXINE SODIUM 75 MCG TAB PO SCH (08:21)
[2025-03-19] MEDS: OXCARBAZEPINE 300 MG TAB PO SCH (08:21)
[2025-03-19] MEDS: METHOCARBAMOL 750 MG TAB PO PRN (08:22)
[2025-03-19] MEDS: ARIPIPRAZOLE 20 MG TAB PO SCH (09:00)
[2025-03-19] MEDS: PANTOPRAZOLE SOD 40 MG TABEC PO SCH (09:00)
[2025-03-19] MEDS: HYDROMORPHONE 1MG/1ML INJ IV PRN (11:32)
[2025-03-19] MEDS: PAROXETINE HCL 20 MG TAB PO SCH (21:09)
[2025-03-19] MEDS: AMITRIPTYLINE HCL 25 MG TAB PO SCH (21:10)
[2025-03-19] MEDS: ZIPRASIDONE 20 MG CAP PO SCH (21:10)
[2025-03-19 22:38] LABS: ALBUMIN 2.8 g/dL (3.5-5.0); ALBUMIN/GLOBULIN RATIO 1.1 (0.8-2.0); ANION GAP 12.6 mmol/L (8-16); BILIRUBIN,TOTAL 0.1 mg/dL (0.2-1.2); CREATININE, SERUM 0.84 mg/dL (0.57-1.11); POTASSIUM 3.6 mmol/L (3.5-5.1)
[2025-03-19 23:02] LABS: TOTAL PROTEIN 5.4 g/dL (6.5-8.1)
[2025-03-20] VITALS (8 sets, daily range): BP systolic 91–145; BP diastolic 62–73; PULSE 84–107; RESP 17–20; TEMP 98–98.4; O2SAT 96–100
[2025-03-20 06:01] LABS: BASOPHILS % 0.3 % (0.0-1.0); EOSINOPHILS # (AUTO) 0.4 (0.0-0.4); EOSINOPHILS % 5.8 % (0.0-6.0); HEMATOCRIT 33.8 % (34.2-44.1); HEMOGLOBIN 10.8 g/dL (12.0-16.0); LYMPHOCYTES # (AUTO) 0.4 (1.0-3.2); LYMPHOCYTES % 5.5 % (18.0-39.1); MEAN CORPUSCULAR HEMOGLOBIN 29.3 pg (28-32); MEAN CORPUSCULAR VOLUME 91.6 fL (81-99); MONOCYTES # (AUTO) 0.6 (0.2-0.8); MONOCYTES % 8.7 % (4.4-11.3); NEUTROPHILS # (AUTO) 5.4 (2.1-6.9); NEUTROPHILS % 79.1 % (38.7-80.0); PLATELET COUNT 346 x10e3/uL (140-360); RED BLOOD COUNT 3.69 x10e6/uL (3.6-5.1); RED CELL DISTRIBUTION WIDTH 16.4 % (11.7-14.4); WHITE BLOOD COUNT 6.78 x10e3/uL (4.8-10.8)
[2025-03-20 06:31] LABS: ALBUMIN 2.6 g/dL (3.5-5.0); ALBUMIN/GLOBULIN RATIO 0.9 (0.8-2.0); ANION GAP 12.5 mmol/L (8-16); BILIRUBIN,TOTAL 0.1 mg/dL (0.2-1.2); CALCIUM 8.3 mg/dL (8.4-10.2); CREATININE, SERUM 0.75 mg/dL (0.57-1.11); POTASSIUM 3.5 mmol/L (3.5-5.1); TOTAL PROTEIN 5.5 g/dL (6.5-8.1)
[2025-03-21] VITALS (8 sets, daily range): BP systolic 88–142; BP diastolic 54–88; PULSE 71–108; RESP 16–20; TEMP 97.6–98.2; O2SAT 96–100
[2025-03-21] MEDS: GUAIFENESIN 600 MG TAB PO PRN (11:25)
[2025-03-22] VITALS (8 sets, daily range): BP systolic 111–140; BP diastolic 60–113; PULSE 80–113; RESP 16–18; TEMP 97.7–98.2; O2SAT 94–100
[2025-03-22] MEDS: LEVALBUTEROL HCL SOLN NEBU 1.25 MG/3 ML NEB INH PRN (00:53)
[2025-03-22] MEDS ORDERED: HYDRALAZINE HCL 20 MG/ML VIAL IV PRN (03:45)
[2025-03-22 05:39] LABS: BASOPHILS % 0.5 % (0.0-1.0); EOSINOPHILS # (AUTO) 0.5 (0.0-0.4); HEMATOCRIT 31.3 % (34.2-44.1); HEMOGLOBIN 9.8 g/dL (12.0-16.0); LYMPHOCYTES # (AUTO) 1.5 (1.0-3.2); LYMPHOCYTES % 26.3 % (18.0-39.1); MEAN CORPUSCULAR HEMOGLOBIN 29.2 pg (28-32); MEAN CORPUSCULAR HGB CONC 31.3 g/dL (31-35); MEAN CORPUSCULAR VOLUME 93.2 fL (81-99); MONOCYTES # (AUTO) 0.7 (0.2-0.8); MONOCYTES % 11.9 % (4.4-11.3); NEUTROPHILS % 51.4 % (38.7-80.0); PLATELET COUNT 364 x10e3/uL (140-360); RED BLOOD COUNT 3.36 x10e6/uL (3.6-5.1); RED CELL DISTRIBUTION WIDTH 16.8 % (11.7-14.4); WHITE BLOOD COUNT 5.86 x10e3/uL (4.8-10.8)
[2025-03-22 06:09] LABS: ALBUMIN 2.6 g/dL (3.5-5.0); ALBUMIN/GLOBULIN RATIO 0.9 (0.8-2.0); ANION GAP 11.4 mmol/L (8-16); BILIRUBIN,TOTAL 0.1 mg/dL (0.2-1.2); CREATININE, SERUM 0.79 mg/dL (0.57-1.11); TOTAL PROTEIN 5.4 g/dL (6.5-8.1)
[2025-03-22 06:10] LABS: POTASSIUM 3.4 mmol/L (3.5-5.1)
[2025-03-22] MEDS ORDERED: SEVOFLURANE INHAL SOLN 250 ML PEN BTL ONE (06:55)
[2025-03-22] MEDS ORDERED: MIDAZOLAM HCL 2 MG/2 ML VIAL ONE (06:55)
[2025-03-22] MEDS ORDERED: LIDOCAINE HCL 2% LOCAL INJ 5 ML SDV VIAL INJ ONE (06:55)
[2025-03-22] MEDS ORDERED: PROPOFOL IV EMULSION 10 MG/ML 20 ML VIAL ONE (06:55)
[2025-03-22] MEDS ORDERED: FENTANYL CITRATE/PF 100MCG/2 ML INJ ONE (06:55)
[2025-03-22] MEDS ORDERED: ONDANSETRON HCL INJ 2MG/ML 2ML 2 MG/ML VIAL ONE (07:23)
[2025-03-22] MEDS ORDERED: DEXAMETHASONE SOD PHOS INJ 4 MG/ML SDV ONE (07:23)
[2025-03-22] MEDS ORDERED: FAMOTIDINE 20 MG/2 ML VIAL IV ONE (07:23)
[2025-03-22] MEDS ORDERED: ACETAMINOPHEN 1000 MG/100 ML 100 ML IV ONE (07:41)
[2025-03-22] MEDS: FENTANYL CITRATE/PF 100MCG/2 ML INJ ONE (08:45)
[2025-03-22 09:39] LABS: EOSINOPHILS % (MANUAL) 15 % (0-7); LYMPHOCYTES % (MANUAL) 32 % (19-48); MONOCYTES % (MANUAL) 4 % (3.4-9.0); NEUTROPHILS % (MANUAL) 49 % (40-74)
[2025-03-22 09:41] LABS: PLATELET ESTIMATE ADEQUATE; PLATELET MORPHOLOGY COMMENT NORMAL
[2025-03-23] VITALS (10 sets, daily range): BP systolic 106–134; BP diastolic 57–97; PULSE 81–114; RESP 18–20; TEMP 97.8–98.7; O2SAT 95–100
[2025-03-23 15:02] LABS: FERRITIN 20.08 ng/mL (4.63-204.00)
[2025-03-24 00:22] VITALS: BP 127/74; PULSE 84; RESP 20; TEMP 98.2; O2SAT 98
[2025-03-24 06:16] LABS: FOLATE (REF LAB) 10.2 ng/mL (>3.0)
[2025-03-24 06:47] VITALS: PULSE 75; RESP 20; O2SAT 97
[2025-03-24 08:42] VITALS: BP 100/63; PULSE 87; RESP 18; TEMP 98.1
[2025-03-24 08:56] VITALS: BP 100/63; PULSE 87; RESP 18; TEMP 98.4; O2SAT 99
[2025-03-24 09:47] LABS: BASOPHILS % 0.4 % (0.0-1.0); EOSINOPHILS # (AUTO) 0.4 (0.0-0.4); HEMOGLOBIN 8.7 g/dL (12.0-16.0); LYMPHOCYTES # (AUTO) 2.3 (1.0-3.2); LYMPHOCYTES % 44.4 % (18.0-39.1); MEAN CORPUSCULAR HEMOGLOBIN 28.8 pg (28-32); MEAN CORPUSCULAR HGB CONC 31.1 g/dL (31-35); MEAN CORPUSCULAR VOLUME 92.7 fL (81-99); MONOCYTES # (AUTO) 0.6 (0.2-0.8); MONOCYTES % 11.2 % (4.4-11.3); NEUTROPHILS # (AUTO) 1.9 (2.1-6.9); NEUTROPHILS % 36.4 % (38.7-80.0); PLATELET COUNT 357 x10e3/uL (140-360); RED BLOOD COUNT 3.02 x10e6/uL (3.6-5.1); WHITE BLOOD COUNT 5.11 x10e3/uL (4.8-10.8)
[2025-03-24 10:12] LABS: ALBUMIN 2.4 g/dL (3.5-5.0); ALBUMIN/GLOBULIN RATIO 0.9 (0.8-2.0); ANION GAP 11.3 mmol/L (8-16); BILIRUBIN,TOTAL 0.1 mg/dL (0.2-1.2); CALCIUM 7.8 mg/dL (8.4-10.2); CREATININE, SERUM 0.72 mg/dL (0.57-1.11); MAGNESIUM 2.1 MG/DL (1.3-2.1); TOTAL PROTEIN 5.2 g/dL (6.5-8.1)
[2025-03-24 10:14] LABS: POTASSIUM 3.3 mmol/L (3.5-5.1)
[2025-03-24] MEDS ORDERED: MORPHINE SULFATE 1 MG/ML 30ML PCA IV PRN (11:45)
[2025-03-24] MEDS: Morphine 2mg Syringe 2 MG/ML SYR IV PRN (12:18)
[2025-03-24] MEDS ORDERED: SODIUM FERRIC GLUCONATE COMPLX 125 MG in SODIUM CHLORIDE 0.9% 100 ML IV SCH (13:00)
[2025-03-24 14:49] VITALS: BP 108/76; PULSE 89; RESP 18; TEMP 97.9; O2SAT 100
== END 2025-03-24 14:52 | disposition home or self-care (01) | DRG 699 ==
LOC: ER 20:00 → ERHOLD 03-19 00:44 → MED/SURG2 03-19 02:48
PROVIDERS: ADMIT Internal Medicine; ATTEND Internal Medicine
PROC: 02HV33Z Insertion of Infusion Device into Superior Vena Cava, Percutaneous Approach (ICD-10-PCS; principal; 2025-03-19)
PROC: 0TC68ZZ Extirpation of Matter from Right Ureter, Via Natural or Artificial Opening Endoscopic (ICD-10-PCS; 2025-03-22)
PROC: BT111ZZ Fluoroscopy of Right Kidney using Low Osmolar Contrast (ICD-10-PCS; 2025-03-22)
PROC: BT161ZZ Fluoroscopy of Right Ureter using Low Osmolar Contrast (ICD-10-PCS; 2025-03-22)
PROC: 0UJH7ZZ Inspection of Vagina and Cul-de-sac, Via Natural or Artificial Opening (ICD-10-PCS; 2025-03-22)
PROC: 0TP98DZ Removal of Intraluminal Device from Ureter, Via Natural or Artificial Opening Endoscopic (ICD-10-PCS; 2025-03-22 07:16)
DX: T83.122A Displacement of indwelling ureteral stent, initial encounter (principal); E87.1 Hypo-osmolality and hyponatremia; N13.6 Pyonephrosis; F31.9 Bipolar disorder, unspecified; M79.7 Fibromyalgia; R31.0 Gross hematuria; N23 Unspecified renal colic; D64.9 Anemia, unspecified; K21.9 Gastro-esophageal reflux disease without esophagitis; N28.1 Cyst of kidney, acquired; F41.9 Anxiety disorder, unspecified; Q63.2 Ectopic kidney; E66.9 Obesity, unspecified; Z68.28 Body mass index [BMI] 28.0-28.9, adult; Y83.1 Surgical operation with implant of artificial internal device as the cause of abnormal reaction of the patient, or of later complication, without mention of misadventure at the time of the procedure; Z79.890 Hormone replacement therapy; Z98.84 Bariatric surgery status; Z88.5 Allergy status to narcotic agent; Z87.891 Personal history of nicotine dependence
CPT/HCPCS: 36415; 36569; 71045; 74176; 74420; 80053; 81001; 82607; 82728; 82746; 83010; 83540; 83615; 83735; 84466; 84702; 85025; 85045; 87086; 88300; 94799; 99284; C1758; C1766; C1769; J1100; J1171; J1308; J2003; J2250; J2270; J2405; J2470; J2543; J2916; J7030; J7050

== ENCOUNTER 2025-05-31 15:24 | Emergency (ER) | payer MEDICARE ==
[~2025-05-31] VITALS: Ht 165.1 cm; Wt 78.5 kg
[2025-05-31 17:15] LABS: BASOPHILS % 0.6 % (0.0-1.0); EOSINOPHILS % 0.9 % (0.0-6.0); LYMPHOCYTES % 23.0 % (18.0-39.1); MONOCYTES % 8.0 % (4.4-11.3); NEUTROPHILS % 67.3 % (38.7-80.0); RED CELL DISTRIBUTION WIDTH 16.0 % (11.7-14.4)
[2025-05-31 17:39] LABS: EST GLOMERULAR FILTRATION RATE 80.0 ML/MIN (>=60)
[2025-05-31] MEDS ORDERED: Vancomycin IV 1 GM in SODIUM CHLORIDE 0.9% 250ML 250 ML IV SCH (17:45)
[2025-05-31] MEDS ORDERED: Vancomycin IV 500 MG in SODIUM CHLORIDE 0.9% 100 ML IV SCH (17:45)
[2025-05-31] MEDS: KETOROLAC TROMETHAMINE 30 MG/ML VIAL IV STA (17:55)
[2025-05-31] MEDS: ONDANSETRON HCL INJ 2MG/ML 2ML 2 MG/ML VIAL IV STA (17:56)
[2025-05-31 17:57] LABS: INR 0.89
[2025-05-31] MEDS: SODIUM CHLORIDE 0.9% 1000ML 1,000 ML IV ONE (17:57)
[2025-05-31] MEDS ORDERED: VANCOMYCIN 1.5 GM/300 ML (PEG) 300 ML IV ONE (18:00)
[2025-05-31 19:08] LABS: LEUKOCYTE ESTERASE ,URINE NEGATIVE (NEGATIVE); PROTEIN,URINE DIPSTICK NEGATIVE (NEGATIVE); URINE UROBILINOGEN 0.2 mg/dL (0.2 - 1)
[2025-05-31 19:19] LABS: EPITHELIAL CELLS,URINE FEW /LPF
[2025-05-31] MEDS ORDERED: ONDANSETRON ODT4 MG SL (19:35)
[2025-05-31] MEDS ORDERED: DOXYCYCLINE HY100 MG PO (19:35)
[2025-05-31] MEDS: PROMETHAZINE HCL (IM) 25 MG/ML VIAL IM ONE (21:20)
[2025-05-31 21:26] VITALS: PULSE 103; RESP 20; TEMP 98.9; O2SAT 97
== END 2025-05-31 21:25 | disposition home or self-care (01) ==
LOC: ER 16:18
DX: R10.9 Unspecified abdominal pain (principal); M54.50 Low back pain, unspecified; S70.362A Insect bite (nonvenomous), left thigh, initial encounter; L08.9 Local infection of the skin and subcutaneous tissue, unspecified; G89.29 Other chronic pain; F41.9 Anxiety disorder, unspecified; F32.A Depression, unspecified; F60.3 Borderline personality disorder; Z98.84 Bariatric surgery status
CPT/HCPCS: 36415; 71045; 74176; 80053; 81001; 83690; 84702; 85025; 85610; 85730; 93005; 99284; J1885; J2405; J2543; J2550; J7030

== ENCOUNTER 2025-06-23 16:08 | Inpatient (IN) | payer MEDICARE ==
[~2025-06-23] VITALS: Ht 160 cm; Wt 79.4 kg
[~2025-06-23 16:08] MED LIST changes: +DOXYCYCLINE HY100 MG PO; +ONDANSETRON ODT4 MG SL
[2025-06-23 16:52] VITALS: PULSE 99; RESP 16; TEMP 98.1
[2025-06-23] MEDS: KETOROLAC TROMETHAMINE 30 MG/ML VIAL IV STA (17:07)
[2025-06-23] MEDS: METHYLPREDNISOLONE SOD SUCC 125 MG/2ML VIAL IV STA (17:07)
[2025-06-23] MEDS: DIPHENHYDRAMINE HCL INJ 50 MG/ML VIAL IV STA (17:07)
[2025-06-23] MEDS: SODIUM CHLORIDE 0.9% 1000ML 1,000 ML IV STA (17:07)
[2025-06-23] MEDS: METOCLOPRAMIDE HCL 10 MG/2ML VIAL IV STA (17:08)
[2025-06-23 17:20] LABS: BASOPHILS % 0.6 % (0.0-1.0); EOSINOPHILS % 0.7 % (0.0-6.0); LYMPHOCYTES % 16.5 % (18.0-39.1); MONOCYTES % 6.6 % (4.4-11.3); NEUTROPHILS % 75.3 % (38.7-80.0); RED CELL DISTRIBUTION WIDTH 14.7 % (11.7-14.4)
[2025-06-23 17:38] LABS: EST GLOMERULAR FILTRATION RATE 108.0 ML/MIN (>=60)
[2025-06-23] MEDS ORDERED: ONDANSETRON HCL INJ 2MG/ML 2ML 2 MG/ML VIAL IV PRN (18:15)
[2025-06-23] MEDS: SODIUM CHLORIDE 0.9% 1000ML 1,000 ML IV SCH (19:45)
[2025-06-23 20:00] VITALS: BP 147/101; PULSE 101; RESP 18; TEMP 98; O2SAT 100
[2025-06-23] MEDS: MECLIZINE HCL 12.5 MG TAB PO SCH (21:12)
[2025-06-23] MEDS: ONDANSETRON HCL INJ 2MG/ML 2ML 2 MG/ML VIAL IV PRN (21:12)
[2025-06-23] MEDS: TOPIRAMATE 25 MG TAB PO SCH (21:13)
[2025-06-23] MEDS: AMITRIPTYLINE HCL 25 MG TAB PO SCH (21:13)
[2025-06-23] MEDS: HYDROMORPHONE 1MG/1ML INJ IV PRN (21:14)
[2025-06-23 23:47] VITALS: BP 127/86; PULSE 103; RESP 17; TEMP 97.8; O2SAT 97
[2025-06-24] VITALS (9 sets, daily range): BP systolic 98–127; BP diastolic 60–93; PULSE 85–103; RESP 18–20; TEMP 97.6–98.2; O2SAT 96–99
[2025-06-24] MEDS: LEVOTHYROXINE SODIUM 75 MCG TAB PO SCH (05:16)
[2025-06-24] MEDS: PAROXETINE HCL 20 MG TAB PO SCH (08:48)
[2025-06-24] MEDS: ARIPIPRAZOLE 20 MG TAB PO SCH (08:48)
[2025-06-24] MEDS: PREGABALIN 50 MG CAP PO SCH (08:48)
[2025-06-24] MEDS: OXCARBAZEPINE 300 MG TAB PO SCH (08:48)
[2025-06-24] MEDS: PANTOPRAZOLE SODIUM 20 MG TABLET.DR PO SCH (08:48)
[2025-06-24 09:29] LABS: EST GLOMERULAR FILTRATION RATE 108.0 ML/MIN (>=60)
[2025-06-24 09:51] LABS: OSMOLALITY,SERUM 266 mOsm/kg (278-305)
[2025-06-24 10:19] LABS: BASOPHILS % 0.3 % (0.0-1.0); EOSINOPHILS % 0.5 % (0.0-6.0); LYMPHOCYTES % 25.4 % (18.0-39.1); MONOCYTES % 11.4 % (4.4-11.3); NEUTROPHILS % 62.1 % (38.7-80.0); RED CELL DISTRIBUTION WIDTH 14.6 % (11.7-14.4)
[2025-06-24] MEDS: LORAZEPAM 1 MG TAB PO SCH (10:38)
[2025-06-24] MEDS: METHOCARBAMOL 750 MG TAB PO PRN (11:56)
[2025-06-24] MEDS: DIPHENHYDRAMINE HCL INJ 50 MG/ML VIAL IV ONE (12:39)
[2025-06-24] MEDS: SODIUM CHLORIDE 1 GM TAB PO SCH (15:06)
[2025-06-24] MEDS: ZIPRASIDONE 20 MG CAP PO SCH (21:00)
[2025-06-25] VITALS (9 sets, daily range): BP systolic 103–111; BP diastolic 69–90; PULSE 91–108; RESP 16–20; TEMP 97–99.6; O2SAT 96–99
[2025-06-26 07:00] VITALS: BP 118/79; PULSE 88; RESP 18; TEMP 98.6; O2SAT 95
[2025-06-26 08:26] LABS: BASOPHILS % 0.6 % (0.0-1.0); EOSINOPHILS % 2.5 % (0.0-6.0); LYMPHOCYTES % 24.0 % (18.0-39.1); MONOCYTES % 11.3 % (4.4-11.3); NEUTROPHILS % 61.4 % (38.7-80.0); RED CELL DISTRIBUTION WIDTH 15.6 % (11.7-14.4)
[2025-06-26 08:42] LABS: EST GLOMERULAR FILTRATION RATE 108.0 ML/MIN (>=60)
[2025-06-26 10:20] VITALS: BP 118/79; PULSE 88; RESP 18; TEMP 98.6; O2SAT 95
[2025-06-26 13:07] VITALS: BP 128/84; PULSE 92; RESP 20; TEMP 97.8; O2SAT 100
[2025-06-26 16:32] VITALS: BP 136/89; PULSE 85; RESP 18; TEMP 98.2; O2SAT 100
[2025-06-26 20:00] VITALS: BP 124/93; PULSE 97; RESP 19; TEMP 99.5; O2SAT 98
[2025-06-26 21:00] VITALS: BP 124/93; PULSE 97; RESP 19; TEMP 99.5; O2SAT 98
[2025-06-27] VITALS: BP 111/62; PULSE 99; RESP 22; TEMP 98.4; O2SAT 96
[2025-06-27 06:22] LABS: BASOPHILS % 0.6 % (0.0-1.0); EOSINOPHILS % 3.0 % (0.0-6.0); LYMPHOCYTES % 19.3 % (18.0-39.1); MONOCYTES % 8.6 % (4.4-11.3); NEUTROPHILS % 68.3 % (38.7-80.0); RED CELL DISTRIBUTION WIDTH 15.8 % (11.7-14.4)
[2025-06-27 06:55] LABS: EST GLOMERULAR FILTRATION RATE 102.0 ML/MIN (>=60)
[2025-06-27 08:00] VITALS: BP 120/70; PULSE 94; RESP 16; TEMP 98.6; O2SAT 98
[2025-06-27 09:00] VITALS: BP 120/70; PULSE 94; RESP 16; TEMP 98.6; O2SAT 98
[2025-06-27 12:00] VITALS: BP 91/78; PULSE 100; RESP 18; TEMP 98.9; O2SAT 96
[2025-06-27] MEDS: SODIUM CHLORIDE 1 GM TAB PO SCH (12:15)
[2025-06-27 12:33] VITALS: BP 121/75
== END 2025-06-27 12:42 | disposition home or self-care (01) | DRG 103 ==
LOC: ER 16:16 → ERHOLD 18:02 → MED/SURG2 20:07
PROVIDERS: ADMIT Internal Medicine; ATTEND Internal Medicine
DX: G43.909 Migraine, unspecified, not intractable, without status migrainosus (principal); E22.2 Syndrome of inappropriate secretion of antidiuretic hormone; R42 Dizziness and giddiness; K21.9 Gastro-esophageal reflux disease without esophagitis; E03.9 Hypothyroidism, unspecified; F31.9 Bipolar disorder, unspecified; R53.81 Other malaise; F41.9 Anxiety disorder, unspecified; M79.7 Fibromyalgia; E66.9 Obesity, unspecified; Z68.31 Body mass index [BMI] 31.0-31.9, adult; Z79.890 Hormone replacement therapy; Z98.84 Bariatric surgery status; Z88.5 Allergy status to narcotic agent; Z87.891 Personal history of nicotine dependence
CPT/HCPCS: 36415; 70450; 71045; 80048; 80053; 82550; 82553; 82947; 83690; 83880; 83935; 84295; 84300; 84484; 84520; 85025; 93005; 96374; 96375; 96376; 99284; J1171; J1200; J1885; J2405; J2765; J2919; J7030